=== PATIENT | male | born 1950 | race Caucasian/White ===

== ENCOUNTER → 2018-12-12 11:55 | Outpatient (CLI) | payer OTHER, SELFPAY ==
--- NOTE | 2018-12-12 11:57 | DI.RAD.S_ITS ---
PROCEDURE: FL BARIUM SWALLOW INDICATIONS: dysphagia COMPARISON: [facility] , BARIUM SWALLOW, 05/11/2016, 10:52. FINDINGS: Function: There is normal esophageal peristalsis. No elicited gastroesophageal reflux. Morphology: Air-contrast images demonstrate normal mucosal morphology. Single contrast views show no significant or new esophageal strictures, extrinsic mass effects, or diverticula. Small proximal esophageal ring seen previously is less prominent the current study. Limited images of the stomach demonstrate normal appearance. IMPRESSION: 1. No elicited gastroesophageal reflux or significant hiatal hernia. 2. Small proximal esophageal ring is less prominent on the current study. Dictated by: Sarah Don M.D. on 12/12/2018 at 14:33 Approved by: Sarah Don M.D. on 12/12/2018 at 14:41
== END ==
PROVIDERS: PCP Internal Medicine; Visit Provider Internal Medicine
DX: R13.10 Dysphagia, unspecified (principal); K22.2 Esophageal obstruction
CPT/HCPCS: 74220

== ENCOUNTER → 2020-06-20 11:45 | Outpatient (CLI) | payer OTHER, SELFPAY ==
--- NOTE | 2020-06-20 11:48 | DI.RAD.S_ITS ---
PROCEDURE: XR LUMBAR SPINE 2-3V INDICATIONS: right flank pain TECHNIQUE: 3 the views of the lumbar spine were acquired. COMPARISON: None. FINDINGS: Bones: No fracture. Multilevel degenerative endplate sclerosis and spurring. Diffuse facet arthropathy. Mild narrowing of the L1-L2 and L2-L3 disc spaces. Soft tissues: Scattered vascular calcifications seen in the aorta. IMPRESSION: Mild upper lumbar spondylosis and diffuse facet arthropathy Dictated by: Tico Gray M.D. on 06/20/2020 at 13:38 Approved by: Tico Gray M.D. on 06/20/2020 at 13:40
--- NOTE | 2020-06-20 11:48 | DI.RAD.S_ITS ---
PROCEDURE: XR KNEE RT 3V INDICATIONS: right knee pain TECHNIQUE: 3 views of the knee were acquired. COMPARISON: None. FINDINGS: Bones: No fractures or dislocations. No suspicious bony lesions. Scattered degenerative subchondral sclerosis and spurring. Joint spaces appear grossly preserved. Hypertrophic osseous appearance of the inferior pole of the patella Soft tissues: Trace joint effusion. No suspicious soft tissue calcifications. 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 Mild degenerative changes. If the patient's pain or other symptoms persist, consider further evaluation with MRI Dictated by: Tico Gray M.D. on 06/20/2020 at 14:58 Approved by: Tico Gray M.D. on 06/20/2020 at 15:02
== END ==
PROVIDERS: PCP Internal Medicine; Referring Provider Internal Medicine; Visit Provider Internal Medicine
DX: M25.561 Pain in right knee (principal); M47.816 Spondylosis without myelopathy or radiculopathy, lumbar region; I10 Essential (primary) hypertension; R10.9 Unspecified abdominal pain
CPT/HCPCS: 72100; 73562

== ENCOUNTER → 2022-01-27 16:35 | Outpatient (CLI) | payer OTHER, SELFPAY ==
--- NOTE | 2022-01-27 16:43 | DI.RAD.S_ITS ---
PROCEDURE: XR SHOULDER LT MIN 2V INDICATIONS: PAIN TECHNIQUE: 3 views of the shoulder were acquired. COMPARISON: None. FINDINGS: Bones: No fractures or dislocations. No suspicious bony lesions. Visualized ribs appear intact. The left acromioclavicular joint has mild degenerative changes. Soft tissues: No suspicious soft tissue calcifications. IMPRESSION: Mild degenerative changes of the left acromioclavicular joint. Otherwise no significant abnormality. No definite radiographic abnormality. If pain persists with conservative management consider cross-sectional imaging with MRI or CT. Dictated by: Myles Lopez M.D. on 01/28/2022 at 6:29 Approved by: Myles Lopez M.D. on 01/28/2022 at 6:30
[2022-01-27 17:38] LABS: Add Manual Diff / Slide Review NO; Basophils Absolute Auto 0 /uL (0-100); Basophils Percent Auto 0.5 % (0-2); Eosinophils Absolute Auto 100 /uL (0-450); Eosinophils Percent Auto 1.7 % (2-4); Hematocrit 43.4 % (41-53); Hemoglobin 15.3 g/dL (13.5-17.5); Lymphocytes Absolute Auto 1500 /uL (1100-4500); Mean Corpuscular HGB Conc 35.2 % (30-36); Mean Corpuscular Hemoglobin 30.5 PG (26-34); Mean Corpuscular Volume 86.6 fL (80-100); Monocytes Absolute Auto 500 /uL (0-900); Monocytes Percent Auto 8.1 % (3-14); Neutrophils Absolute Auto 4400 /uL (1500-7000); Neutrophils Percent Auto 66.7 % (50-75); Platelet Count 229 X10^3/uL (150-400); Red Blood Cell Count 5.01 X10^6/uL (4.5-5.9); Red Cell Distribution Width 13.9 % (11.6-14.8); White Blood Cell Count 6.6 X10^3/uL (4.5-11.0)
[2022-01-27 17:46] LABS: Alanine Aminotransferase 44 IU/L (<50); Albumin 4.6 g/dL (3.5-5.0); Albumin Globulin Ratio 1.2 (1.0-2.8); Alkaline Phosphatase 98 U/L (38-126); Aspartate Aminotransferase 33 IU/L (17-59); BUN Creatinine Ratio 15.3 (6-22); Bilirubin Total 1.1 mg/dL (0.2-1.3); Blood Urea Nitrogen 18 mg/dL (9-20); Calcium 9.1 mg/dL (8.4-10.2); Carbon Dioxide 23 mmol/L (22-32); Chloride 108 mmol/L (98-107); Cholesterol 195 mg/dL (140-199); Estimated Glomerular Filt Rate > 60 mL/min (>60); Glucose 102 mg/dL (80-110); HDL Cholesterol 29 mg/dL (40-60); HEMOLYSIS < 15 (0-50); LDL Cholesterol Calculated 127 mg/dL (<100); Potassium 3.4 mmol/L (3.4-5.1); Sodium 140 mmol/L (137-145); Total Protein 8.6 g/dL (6.3-8.2); Triglycerides 194 mg/dL (35-150)
[2022-01-27 17:51] LABS: Hemoglobin A1C% w Est Avg Glu 6.9 % (4.0-6.0)
[2022-01-27 18:24] LABS: TSH w/ Reflex to FT4 0.85 uIU/mL (0.47-4.68)
[2022-02-05 18:32] LABS: Percent Free Testosterone 1.46 % (1.50-4.20); Testosterone Free 0.59 ng/dL (5.00-21.00); Testosterone Total 40.4 ng/dL (264.0-916.0)
== END ==
PROVIDERS: PCP Family Medicine; Referring Provider Family Medicine; Visit Provider Family Medicine
DX: M25.512 Pain in left shoulder (principal); E29.1 Testicular hypofunction; E11.9 Type 2 diabetes mellitus without complications; I10 Essential (primary) hypertension; Z79.899 Other long term (current) drug therapy
CPT/HCPCS: 36415; 73030; 80053; 80061; 83036; 84402; 84403; 84443; 85025

== ENCOUNTER 2022-03-05 10:22 | Emergency (ER) | payer OTHER, SELFPAY ==
[2022-03-05] VITALS (9 sets, daily range): BP systolic 182–189; BP diastolic 93–97; PULSE 64–76; RESP 18–22; TEMP 36.6; O2SAT 95–99; BMI 31.0
--- NOTE | 2022-03-05 12:58 | ED.DENTAL ---
HPI - Dental/Oral <Cathy Love ACUTE CARE NURSE PRACTITIONER - Last Filed: 03/05/22 13:08> General Chief complaint: Dental/Oral Stated complaint: major tooth infection Time Seen by Provider: 03/05/22 11:57 Source: patient Mode of arrival: Ambulatory History of Present Illness HPI Narrative: This is a 71-year-old male with history of schizophrenia, GERD, hypertension, and Gonzales's esophagus who presents to the emergency department complaining of two weeks of left lower dental pain related to associated DKA with concern for infection. Patient endorses that was left at the tooth is loose and can wiggle but he has not been able to pull it out. Patient states that he did not sleep well last night due to the pain, states that he took Tylenol this morning and he is still having pain beyond the coverage of his Tylenol. He endorses a history of dental decay with most of his teeth missing and significant erosion. He denies any recent fever, swelling, lump in his mouth, facial pain throat or neck pain, chills, difficulty swallowing, or other or concerns. He states that it is sensitive to touch, denies any drainage, has history of multiple antibiotic allergies. Patient's primary care provider is Dr. Sims, and patient states that he does not have a dentist and cannot afford regular dental care. Related Data Home Medications Medication Instructions Recorded Confirmed aspirin 325 mg tablet,delayed 325 mg PO QDAY ##0 08/03/16 06/20/20 release Previous Rx's Medication Instructions Recorded meloxicam 15 mg tablet 15 mg PO DAILY #30 tabs 06/08/18 Sheldon #14 ea 10/01/19 Syringes #14 ea 10/01/19 benztropine 2 mg tablet 2 mg PO TID #270 tabs 11/20/19 triamterene 37.5 1 tab PO QDAY #90 tabs 12/27/19 mg-hydrochlorothiazide 25 mg tablet fluticasone propionate 50 2 spray intranasal BEDTIME #16 06/20/20 mcg/actuation nasal grams spray,suspension testosterone cypionate 100 mg/mL 100 mg IM Q2W #10 mL 06/20/20 intramuscular oil (Depo-Testosterone) trifluoperazine 10 mg tablet 10 mg PO HS #30 tabs 11/28/20 omeprazole 20 mg capsule,delayed 20 mg PO BID #60 caps 12/01/20 release chlorhexidine gluconate 0.12 % 15 ml buccal BID 1 week #118 mL 03/05/22 mouthwash clindamycin HCl 150 mg capsule 150 mg PO TID dental infection 7 03/05/22 days #21 caps clindamycin HCl 300 mg capsule 300 mg PO TID 7 days #21 caps 03/05/22 meloxicam 15 mg tablet 15 mg PO DAILY PRN pain #14 tabs 03/05/22 Allergies Allergy/AdvReac Type Severity Reaction Status Date / Time codeine [CODEINE] Allergy Unknown Verified 06/20/20 10:47 meperidine [MEPERIDINE] Allergy Unknown Verified 06/20/20 10:47 Penicillins [PENICILLINS] Allergy Unknown Verified 06/20/20 10:47 prochlorperazine Allergy Unknown Verified 06/20/20 10:47 [PROCHLORPERAZINE] Review of Systems <RICKY John - Last Filed: 03/05/22 13:08> Review of Systems Narrative: General: denies fever, chills Head/Neck: denies headache, neck pain Eyes: denies visual changes, eye pain Mouth: History of dental decay Cardio: denies chest pain, palpitations Respiratory: denies shortness of breath, cough GI: denies abdominal pain, nausea, vomiting, or diarrhea : denies dysuria, hematuria or flank pain MSK: denies new joint pain, muscle weakness or swelling Skin: denies rash, itching or wound Neuro: denies numbness, tingling, dizziness Patient History <RICKY John - Last Filed: 03/05/22 13:08> Medical History 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 dante/hinduism: Bahai leisure activities: art (Pictures.) and other (TV, Yardwork.) Smoking Status: Never smoker Tobacco: How many years used: 0 quit status: quit date established (Never Started) second hand exposure: No alcohol intake: current (Occasionally Saki.) substance use type: does not use Smoking Status: Never smoker Substance Use Type: does not use Exam <RICKY John - Last Filed: 03/05/22 13:08> Narrative Exam Narrative: Independently reviewed vitals signs and nursing notes. General: Awake, alert, nontoxic, no cardiorespiratory distress Head/Neck: Atraumatic, neck supple, no anterior cervical lymphadenopathy, no tenderness over mastoids bilaterally Eyes: EOMI, conjunctiva normal Nose: nares patent, no rhinorrhea Mouth/Throat: moist mucus membranes, posterior pharynx without erythema or lesion, poor dental hygiene with multiple missing teeth, small lumps of tooth left in a few spots with significant decay and erosion creating a bowl appearance to most teeth, no drainage, no surrounding erythema, edema, fluctuance, or palpable abscess, no submental fluctuance or tenderness Cardio: Regular rate and rhythm, no peripheral edema, hypertensive when in triage, blood pressure 150s to 160s systolic while in the room Respiratory: respirations unlabored without wheezing, stridor, or rales. No retractions, hypoxia or tachypnea GI: Abdomen soft, nontender to palpation x4 quadrants, no guarding or rebound tenderness MSK: Moves all extremities, neurovascularly intact, range of motion without deficit Skin: Normal capillary refill, no rash Neuro: Normal speech and cognition, normal gait Initial Vital Signs Initial Vital Signs: Vital Signs Pulse Rate 76 03/05/22 10:30 Pulse Oximetry 99 03/05/22 10:30 <Olive Wilde DO - Last Filed: 03/07/22 12:34> Initial Vital Signs Initial Vital Signs: Vital Signs Pulse Rate 76 03/05/22 10:30 Pulse Oximetry 99 03/05/22 10:30 Course <RICKY John - Last Filed: 03/05/22 13:08> Orders Ordered: Discontinued Medications Clindamycin HCl (Clindamycin 150 Mg Capsule) 150 mg PO NOW ONE Stop: 03/05/22 12:30 Last Admin: 03/05/22 13:11 Dose: 150 mg Documented By: RL Clindamycin HCl (Clindamycin 150 Mg Capsule) 300 mg PO NOW ONE Stop: 03/05/22 12:30 Last Admin: 03/05/22 13:11 Dose: 300 mg Documented By: RL Ketorolac Tromethamine (Ketorolac 10 Mg Tablet) 10 mg PO NOW ONE Stop: 03/05/22 12:30 Last Admin: 03/05/22 13:11 Dose: 10 mg Documented By: RL Vital Signs Vital signs: Vital Signs - 8 hr 03/05/22 10:32 Temperature 97.8 F Pulse Rate 75 Respiratory Rate 18 Blood Pressure 189/93 H Pulse Oximetry 99 Oxygen Delivery Method Room Air <Olive Wilde DO - Last Filed: 03/07/22 12:34> Orders Ordered: Discontinued Medications Clindamycin HCl (Clindamycin 150 Mg Capsule) 150 mg PO NOW ONE Stop: 03/05/22 12:30 Last Admin: 03/05/22 13:11 Dose: 150 mg Documented By: RL Clindamycin HCl (Clindamycin 150 Mg Capsule) 300 mg PO NOW ONE Stop: 03/05/22 12:30 Last Admin: 03/05/22 13:11 Dose: 300 mg Documented By: RL Ketorolac Tromethamine (Ketorolac 10 Mg Tablet) 10 mg PO NOW ONE Stop: 03/05/22 12:30 Last Admin: 03/05/22 13:11 Dose: 10 mg Documented By: RL Vital Signs Vital signs: Vital Signs - 8 hr 03/05/22 10:32 Temperature 97.8 F Pulse Rate 75 Respiratory Rate 18 Blood Pressure 189/93 H Pulse Oximetry 99 Oxygen Delivery Method Room Air MDM - Dental/Oral <RICKY John - Last Filed: 03/05/22 13:08> MDM Narrative Medical decision making narrative: This is a 71-year-old male with history of schizophrenia, developmental delay, Gonzales's esophagus who presents to the emergency department complaining of left lower mandible dental pain for the last two weeks which has been progressive and causing him poor sleep last night, and his pain is beyond what Tylenol have covered. Patient states that he thinks this is infected because it is so eroded and slightly loose. On my exam, patient has significant dental decay and all of his teeth are eroded and multiple are missing. On the lower left jaw, he has a bowl appearance to his tooth, no fluctuance, abscess, significant erythema or edema surrounding this area, no drainage. This is most likely infected either due to chronic gingivitis or DKA. He was given contact information to the [facility] dental clinics in [place] and [facility]. He was prescribed clindamycin 450 mg t.i.d. for seven days, chlorhexidine mouthwash, he was given meloxicam for pain to add to his Tylenol. In the emergency department he was given Toradol p.o. x1. Patient tolerating p.o., is nontoxic appearing, afebrile, without any systemic signs of infection. He understands to call make an appointment with the dental clinic and follow-up within a week, and to return to the emergency department for any new or worsening symptoms including fever, swelling in his mouth or throat, feeling poorly, or other concerns. Differential considerations include Pj's angina, peritonsillar abscess, dental abscess. Patient is appropriate and amenable to discharge home. Vital signs are stable on repeat examination is unremarkable. Patient has been informed of results. Patient has been given strict return to ER precautions for any new or worsening symptoms. Patient understands to follow up closely with outpatient providers as instructed. Patient understands plan and agrees to discharge home. All questions and concerns answered at this time. Discharge Plan Departure Patient Disposition: Home Clinical Impression: Dental infection, Toothache Instructions: Tooth Decay, DI for Dental Pain Activity Restrictions/Additional Instructions: *You have been diagnosed with a dental infection with decay. Please follow-up at one of the [facility] Dental Clinics. There is one in [place] and [facility] below. Please take clindamycin 450 mg (one 300mg and one 150 capsule) 3 times daily for the next seven days. If you develop a fever, have any worsening swelling, pain, or if you think this is getting worse, you may come back to the emergency department for evaluation again. Please use chlorhexidine oral rinse twice a day for one week to help reduce bacteria. Please eat food and drink some fluid each time the you take medication. You may take Tylenol 650 mg every 6 hours as needed for pain, you may take one ketorolac 10 mg every 6 hours as needed for more pain control. Thank you for trusting us with your care, please call and make an appointment at the clinics below. [facility] [address], [address] [place] [address] P: [phone] [facility] [address] [place] [address] P: [phone] *What to do: *Please continue to take your regular medications as directed. [x ] New medication prescriptions sent to your pharmacy: [ [facility]] [ ] New medication written as a paper prescription [ ] No new medications given *Please follow up with your primary care provider in 2-3 days, call for an appointment. Let them know you were seen in the Emergency Department and that we asked that you be seen for follow-up. We will electronically transmit a record of today's note if your PCP is in our system *If you do not have a primary care provider please contact [phone] to establish care with one of the [facility] primary care providers. *Return to Emergency Department if you should have any new, worsening or concerning symptoms, such as [fever greater than 101F, chills, worsening pain, persistent vomiting or other bothersome symptoms] Prescriptions: New clindamycin HCl 300 mg capsule 300 mg PO TID 7 Days Qty: 21 0RF clindamycin HCl 150 mg capsule 150 mg PO TID 7 Days Qty: 21 0RF Rx Instructions: take with 300mg capsule for a total of 450mg each dose, three times daily meloxicam 15 mg tablet 15 mg PO DAILY PRN (Reason: pain) Qty: 14 0RF chlorhexidine gluconate 0.12 % mouthwash 15 ml buccal BID 7 Days Qty: 118 0RF No Action aspirin 325 MG tablet,delayed release (DR/EC) 325 mg PO QDAY Qty: 0 (DME) Sheldon 18g See Rx Instructions .Route .MEDSUPPLY Qty: 14 3RF Dose Instruction: IM TWICE MONTHLY; Rx Instructions: IM TWICE MONTHLY; Draw up medication with 18g needle. Remove this needle and attach 21g for injection. (DME) Syringes See Rx Instructions .Route .MEDSUPPLY Qty: 14 3RF Dose Instruction: IM SEE INSTRUCTIONS; Rx Instructions: Use only 3ml syringe and 21g, 1 1/2 inch needle every 2 weeks for testosterone injections benztropine 2 mg tablet 2 mg PO TID Qty: 270 3RF triamterene-hydrochlorothiazid 37.5-25 mg tablet 1 tab PO QDAY Qty: 90 3RF trifluoperazine 10 mg tablet 10 mg PO HS Qty: 30 0RF Rx Instructions: REFILLS NEED TO COME FROM NEW PRIMARY DOC. THANK YOU 11/28/20 omeprazole 20 mg capsule,delayed release(DR/EC) 20 mg PO BID Qty: 60 1RF meloxicam 15 mg tablet 15 mg PO DAILY Qty: 30 0RF testosterone cypionate [Depo-Testosterone] 100 mg/mL oil 100 mg IM Q2W Qty: 10 0RF fluticasone propionate 50 mcg/actuation spray,suspension 2 spray intranasal BEDTIME Qty: 16 2RF Referrals: Niall Sims MD [Primary Care Provider] - Visit Report Forms: Patient Portal/API <Olive Wilde DO - Last Filed: 03/07/22 12:34> Cosign ED Attending Rafaelaature Attestation: I was immediately available in the department for consultation. Documentation has been reviewed.
[2022-03-05] MEDS: CLINDAMYCIN 150 MG CAPSULE PO (13:11)
[2022-03-05] MEDS: CLINDAMYCIN 150 MG CAPSULE 300 MG PO (13:11)
[2022-03-05] MEDS: KETOROLAC 10 MG TABLET PO (13:11)
== END 2022-03-05 13:15 | disposition home or self-care (01) ==
PROVIDERS: Emergency Provider Nurse Practitioner Critical Care Medicine; PCP Family Medicine
DX: K04.7 Periapical abscess without sinus (principal); K08.89 Other specified disorders of teeth and supporting structures
CPT/HCPCS: 99283

== ENCOUNTER → 2022-08-30 15:25 | Outpatient (CLI) | payer OTHER, SELFPAY ==
[2022-08-30 17:08] LABS: Influenza A - CEPHEID Flu A NEGATIVE (NEGATIVE); Influenza B - CEPHEID Flu B NEGATIVE (NEGATIVE); Respiratory Syncytial Virus Negative (Negative)
[2022-08-30 17:10] LABS: COVID-19 CEPHEID 4-PLEX PCR Negative (Negative)
== END ==
PROVIDERS: PCP Family Medicine; Visit Provider Nurse Practitioner Family
DX: R05.9 Cough, unspecified (principal); R09.81 Nasal congestion; Z20.822 Contact with and (suspected) exposure to COVID-19
CPT/HCPCS: 0241U

== ENCOUNTER 2023-06-26 19:16 | Observation (INO) | payer OTHER, SELFPAY ==
[2023-06-26] VITALS (11 sets, daily range): BP systolic 130–197; BP diastolic 61–143; PULSE 53–72; RESP 16–28; TEMP 36.4; O2SAT 98; BMI 32.2
--- NOTE | 2023-06-26 19:26 | DI.RAD.S_ITS ---
PROCEDURE: XR CHEST 1V INDICATIONS: Chest pain. TECHNIQUE: One view of the chest was acquired. COMPARISON: None. FINDINGS: Surgical changes and devices: None. Lungs and pleura: Lungs are clear. No pleural effusions or pneumothorax. Mediastinum: Mediastinal contours appear normal. Heart size is normal. Bones and chest wall: No suspicious bony lesions. Overlying soft tissues appear unremarkable. IMPRESSION: No acute cardiopulmonary pathology. Dictated by: Taj Dominguez M.D. on 06/26/2023 at 20:30 Approved by: Taj Dominguez M.D. on 06/26/2023 at 20:31
--- NOTE | 2023-06-26 19:38 | ED_ITS ---
HPI - Chest Pain General Chief Complaint: Chest Pain Stated Complaint: states BP 170/90 Chest Pain Time Seen by Provider: 06/26/23 19:38 Source: patient Mode of arrival: Ambulatory History of Present Illness HPI narrative: Patient is a 72-year-old insulin dependent diabetes hypertension to solve his schizophrenia presenting today with sudden onset of left chest pain. He describes it as an achiness and pressure. It has been pretty constant for a couple of hours he was nauseous but no vomiting. No significant shortness of breath. It started while he was walking his CT. Nonradiating no jaw pain or arm pain. Initially reports still having chest pain took aspirin prior to arrival. History of coronary artery disease. Related Data Home Medications Medication Instructions Recorded Confirmed aspirin 325 mg tablet,delayed 325 mg PO QDAY ##0 08/03/16 08/30/22 release benztropine 2 mg tablet 2 mg PO BID 06/27/23 06/27/23 testosterone 1 pump topical DAILY 06/27/23 06/27/23 trifluoperazine 10 mg tablet 10 mg PO ONCE PM 06/27/23 06/27/23 Previous Rx's Medication Instructions Recorded triamterene 37.5 1 tab PO QDAY #90 tabs 12/27/19 mg-hydrochlorothiazide 25 mg tablet omeprazole 20 mg capsule,delayed 20 mg PO BID #60 caps 10/04/22 release Allergies Allergy/AdvReac Type Severity Reaction Status Date / Time codeine [CODEINE] Allergy Unknown Verified 08/30/22 15:14 meperidine [MEPERIDINE] Allergy Unknown Verified 08/30/22 15:14 Penicillins [PENICILLINS] Allergy Unknown Verified 08/30/22 15:14 prochlorperazine Allergy Unknown Verified 08/30/22 15:14 [PROCHLORPERAZINE] Review of Systems Review of Systems ROS Unobtainable: All systems reviewed & are unremarkable except as noted in HPI and below Patient History Medical History 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 dante/shinto: Adventism leisure activities: art (Pictures.) and other (TV, Yardwork.) Smoking Status: Never smoker Tobacco: How many years used: 0 quit status: quit date established (Never Started) second hand exposure: No alcohol intake: current (Occasionally Saki.) substance use type: does not use Smoking Status: Never smoker Substance Use Type: does not use Exam Initial Vital Signs Initial Vital Signs: Vital Signs Temperature 97.5 F L 06/26/23 19:21 Pulse Rate 72 06/26/23 19:21 Respiratory Rate 16 06/26/23 19:21 Blood Pressure 197/143 H 06/26/23 19:21 Pulse Oximetry 98 06/26/23 19:21 Oxygen Delivery Method Room Air 06/26/23 19:21 GENERAL: Alert pleasant 73-year-old male and in no acute distress. HEENT: Head atraumatic,EOMI, pupils reactive, face symmetric, moist mucous membranes CARDIOVASCULAR: Regular rate and rhythm without murmurs, rubs or gallops. RESPIRATORY: Breath sounds equal bilaterally, no wheezes rales or rhonchi. ABDOMEN: Soft, nontender. Normoactive bowel sounds all 4 quadrants. No guarding or rebound. EXTREMITIES: Normal range of motion, no clubbing or edema. Neurovascularly intact NEUROLOGICAL: Alert and oriented x4 SKIN: Warm, dry, no laceration, no petechiae, no rashes or lesions. Course Orders Ordered: ED Orders 06/26/23 19:26 XR chest 1V Stat EKG-12 Lead Stat 06/26/23 19:33 Complete Blood Count AUTO DIFF Stat Comprehensive Metabolic Panel Stat D Dimer Stat Lipase Stat Magnesium Stat PTT Partial Thromboplastin Cole Stat Prothrombin Time INR Stat Troponin & CK Cardiac Panel Stat 06/26/23 19:53 EKG-12 Lead Stat 06/26/23 21:20 Trop I [Troponin I] Stat 06/27/23 04:15 PTT Partial Thromboplastin Cole Q6H 06/27/23 05:00 Hemoglobin and Hematocrit DAILY Platelet Count DAILY 06/27/23 10:15 PTT Partial Thromboplastin Cole Q6H 06/27/23 16:15 PTT Partial Thromboplastin Cole Q6H 06/28/23 05:00 Hemoglobin and Hematocrit DAILY Platelet Count DAILY Nitroglycerin (Nitroglycerin 0.4 Mg Sl Tab) 0.4 mg SL [id number] PRN PRN Reason: Chest Pain Last Admin: 06/26/23 19:58 Dose: 0.4 mg Documented By: MIGUEL Discontinued Medications Aspirin (Aspirin 81 Mg Chew Tab) 324 mg PO NOW ONE Stop: 06/26/23 19:27 Last Admin: 06/26/23 19:54 Dose: 324 mg Documented By: MIGUEL Heparin Sodium (Porcine) (Heparin 5,000 Unit/Ml Vial) 5,000 unit IV NOW ONE Stop: 06/26/23 22:15 Last Admin: 06/26/23 22:31 Dose: 5,000 unit Documented By: MIGUEL Heparin Sodium/Dextrose (Heparin Drip) 25,000 unit in 500 mls @ 20 mls/hr IV CONT MARTINE; Protocol Last Admin: 06/26/23 22:32 Dose: 1,000 units/hr, 20 mls/hr Documented By: MIGUEL Co-signed By: RUSTAM Vital Signs Vital signs: Vital Signs - 8 hr 06/26/23 19:21 06/26/23 19:45 06/26/23 19:58 Temperature 97.5 F L Pulse Rate 72 71 68 Respiratory Rate 16 27 H Blood Pressure 197/143 H 169/82 H Pulse Oximetry 98 Oxygen Delivery Method Room Air 06/26/23 20:00 06/26/23 20:00 06/26/23 20:30 Temperature Pulse Rate 70 Respiratory Rate 28 H Blood Pressure 172/80 H 147/75 H Pulse Oximetry Oxygen Delivery Method 06/26/23 20:30 06/26/23 21:00 06/26/23 21:00 Temperature Pulse Rate 67 62 Respiratory Rate 28 H 20 Blood Pressure 155/72 H Pulse Oximetry Oxygen Delivery Method 06/26/23 21:30 06/26/23 21:30 06/26/23 22:00 Temperature Pulse Rate 61 Respiratory Rate 22 Blood Pressure 141/67 H 132/68 Pulse Oximetry Oxygen Delivery Method 06/26/23 22:00 06/26/23 22:30 06/26/23 22:30 Temperature Pulse Rate 60 58 L Respiratory Rate 26 H 24 Blood Pressure 142/69 H Pulse Oximetry Oxygen Delivery Method 06/26/23 23:00 06/26/23 23:00 06/26/23 23:30 Temperature Pulse Rate 53 L Respiratory Rate 26 H Blood Pressure 130/63 144/61 H Pulse Oximetry Oxygen Delivery Method 06/26/23 23:30 06/27/23 00:00 06/27/23 00:00 Temperature Pulse Rate 55 L 54 L Respiratory Rate 28 H 18 Blood Pressure 122/56 L Pulse Oximetry Oxygen Delivery Method 06/27/23 00:30 06/27/23 00:31 06/27/23 00:31 Temperature Pulse Rate 54 L 54 L Respiratory Rate 22 22 Blood Pressure 122/56 L Pulse Oximetry Oxygen Delivery Method 06/27/23 01:00 06/27/23 01:01 06/27/23 01:01 Temperature Pulse Rate 52 L 53 L Respiratory Rate 15 20 Blood Pressure 171/72 H Pulse Oximetry Oxygen Delivery Method 06/27/23 01:30 06/27/23 01:31 06/27/23 01:31 Temperature Pulse Rate 52 L 56 L Respiratory Rate 19 24 Blood Pressure 124/59 L Pulse Oximetry Oxygen Delivery Method 06/27/23 02:00 06/27/23 02:01 06/27/23 02:01 Temperature Pulse Rate 53 L 53 L Respiratory Rate 26 H 33 H Blood Pressure 127/59 L Pulse Oximetry Oxygen Delivery Method MDM - Chest Pain Lab Data 06/26/23 19:33 06/26/23 19:33 Labs: Lab Results 06/26/23 06/26/23 Range/Units 19:33 21:20 WBC 10.2 (4.5-11.0) X10^3/uL RBC 4.74 (4.5-5.9) X10^6/uL Hgb 15.0 (13.5-17.5) g/dL Hct 42.0 (41-53) % MCV 88.7 (80-100) fL MCH 31.7 (26-34) PG MCHC 35.8 (30-36) % RDW 13.9 (11.6-14.8) % Plt Count 208 (150-400) X10^3/uL Neut % (Auto) 72.4 (50-75) % Lymph % (Auto) 17.9 L (25-40) % [place] % (Auto) 8.0 (3-14) % Eos % (Auto) 1.3 L (2-4) % Baso % (Auto) 0.4 (0-2) % Neut # (Auto) 7400 H (3377-3181) /uL Lymph # (Auto) 1800 (4678-3784) /uL [place] # (Auto) 800 (0-900) /uL Eos # (Auto) 100 (0-450) /uL Baso # (Auto) 0 (0-100) /uL PT 12.7 (10.1-12.7) SECONDS INR 1.1 (0.9-1.3) APTT 32 (26-36) SECONDS D-Dimer 306 (<500) ng/ml Sodium 141 (137-145) mmol/L Potassium 3.1 L (3.4-5.1) mmol/L Chloride 106 (98-107) mmol/L Carbon Dioxide 27 (22-32) mmol/L BUN 21 H (9-20) mg/dL Creatinine 1.36 H (0.66-1.25) mg/dL Estimated GFR 56 L (>60) mL/min BUN/Creatinine Ratio 15.4 (6-22) Glucose 110 (80-110) mg/dL Calcium 9.8 (8.4-10.2) mg/dL Magnesium 2.0 (1.6-2.3) mg/dL Total Bilirubin 1.1 (0.2-1.3) mg/dL AST 25 (17-59) IU/L ALT 25 (<50) IU/L Alkaline Phosphatase 74 (38-126) U/L Total Creatine Kinase 100 (55-170) U/L Troponin I < 0.012 < 0.012 (0.01-0.034) ng/mL Total Protein 8.2 (6.3-8.2) g/dL Albumin 4.3 (3.5-5.0) g/dL Globulin 3.9 (1.7-4.1) g/dL Albumin/Globulin Ratio 1.1 (1.0-2.8) Lipase 207 (23-300) U/L Imaging Data Chest x-ray: Radiologist's Impression: PROCEDURE: XR CHEST 1V INDICATIONS: Chest pain. TECHNIQUE: One view of the chest was acquired. COMPARISON: None. FINDINGS: Surgical changes and devices: None. Lungs and pleura: Lungs are clear. No pleural effusions or pneumothorax. Mediastinum: Mediastinal contours appear normal. Heart size is normal. Bones and chest wall: No suspicious bony lesions. Overlying soft tissues appear unremarkable. IMPRESSION: No acute cardiopulmonary pathology. Dictated by: Taj Dominguez M.D. on 06/26/2023 at 20:30 ECG Data Interpretation: EKG 1. Sinus rhythm rate 72 IA interval 174 QRS [address] depression lead 1 aVL V5 V6 lead do AVF no ST elevations, previous EKG from [address] depression EKG 2. Sinus rhythm persistent ST depressions without ST elevation MDM Narrative Medical decision making narrative: Patient is 73-year-old male multiple risk factors with new EKG changes presenting today with chest pain. He is 2- troponins he is almost chest pain- free in the ED given a nitroglycerin and remains stable uncomfortable. D-dimer is negative not having any sort of ripping chest pain unlikely to be dissection. Dr. Orr on-call cardiology updated on patient's symptoms test results recommends heparin drip and transfer to [facility] if possible. [facility] boarding minute unable to accept patient Dr. Dominguez, cardiology [facility] updated, states patient can be transferred to [facility] admitted to hospitalist no heparin drip needed would not get a heart catheterization but does need a stress Hospitalist [facility] does not accept patient cardiology would not be involved no need to transfer patient Dr. Busch, updated on patient's symptoms test results cardiology recommendations agrees to keep patient here no heparin drip and kindly accepts Discharge Plan Departure Patient Disposition: Admitted as Observation Clinical Impression: Chest pain Admit Date/Time: 06/27/23 02:06 Admit Provider: Rommel Busch
[2023-06-26 19:43] LABS: Add Manual Diff / Slide Review NO; Basophils Absolute Auto 0 /uL (0-100); Basophils Percent Auto 0.4 % (0-2); Eosinophils Absolute Auto 100 /uL (0-450); Eosinophils Percent Auto 1.3 % (2-4); Lymphocytes Absolute Auto 1800 /uL (1100-4500); Lymphocytes Percent Auto 17.9 % (25-40); Mean Corpuscular HGB Conc 35.8 % (30-36); Mean Corpuscular Hemoglobin 31.7 PG (26-34); Mean Corpuscular Volume 88.7 fL (80-100); Monocytes Absolute Auto 800 /uL (0-900); Neutrophils Absolute Auto 7400 /uL (1500-7000); Neutrophils Percent Auto 72.4 % (50-75); Platelet Count 208 X10^3/uL (150-400); Red Blood Cell Count 4.74 X10^6/uL (4.5-5.9); Red Cell Distribution Width 13.9 % (11.6-14.8); White Blood Cell Count 10.2 X10^3/uL (4.5-11.0)
[2023-06-26 19:51] LABS: INR 1.1 (0.9-1.3); Prothrombin Time 12.7 SECONDS (10.1-12.7)
[2023-06-26 19:53] LABS: PTT Partial Thromboplastin Tim 32 SECONDS (26-36)
[2023-06-26] MEDS: ASPIRIN 81 MG CHEW TAB 324 MG PO (19:54)
[2023-06-26 19:57] LABS: Alanine Aminotransferase 25 IU/L (<50); Albumin 4.3 g/dL (3.5-5.0); Albumin Globulin Ratio 1.1 (1.0-2.8); Alkaline Phosphatase 74 U/L (38-126); Aspartate Aminotransferase 25 IU/L (17-59); BUN Creatinine Ratio 15.4 (6-22); Bilirubin Total 1.1 mg/dL (0.2-1.3); Blood Urea Nitrogen 21 mg/dL (9-20); Calcium 9.8 mg/dL (8.4-10.2); Carbon Dioxide 27 mmol/L (22-32); Chloride 106 mmol/L (98-107); Creatine Kinase 100 U/L (55-170); Estimated Glomerular Filt Rate 56 mL/min (>60); Globulin 3.9 g/dL (1.7-4.1); Glucose 110 mg/dL (80-110); HEMOLYSIS 21 (0-50); Lipase 207 U/L (23-300); Potassium 3.1 mmol/L (3.4-5.1); Sodium 141 mmol/L (137-145); Total Protein 8.2 g/dL (6.3-8.2)
[2023-06-26] MEDS: NITROGLYCERIN 0.4 MG SL TAB SL (19:58)
[2023-06-26 20:07] LABS: D Dimer 306 ng/ml (<500)
[2023-06-26 20:08] LABS: Troponin I < 0.012 ng/mL (0.01-0.034)
[2023-06-26 21:52] LABS: Troponin I < 0.012 ng/mL (0.01-0.034)
[2023-06-26] MEDS: HEPARIN 5,000 UNIT/ML VIAL 5000 UNIT IV (22:31)
[2023-06-26] MEDS: HEPARIN DRIP 25,000 UNIT/500 ML IV.SOLN 20 UNIT IV (22:32)
[2023-06-27] VITALS (15 sets, daily range): BP systolic 122–171; BP diastolic 56–86; PULSE 52–72; RESP 15–33; TEMP 36.3–36.6; O2SAT 96–98; BMI 32.2
[2023-06-27 04:51] LABS: Hemoglobin 14.4 g/dL (13.5-17.5); Platelet Count 184 X10^3/uL (150-400)
[2023-06-27 05:00] LABS: PTT Partial Thromboplastin Tim 35 SECONDS (26-36)
--- NOTE | 2023-06-27 09:07 | DI.ECHO.S_ITS ---
[place] [facility]---------+ [facility] +---------+ : : [address] : : : : [id number] : : : : Phone: [phone]+ Echocardiogram Report + + :Name: CLARIBEL OLSON Study Date: 06/27/2023 Height: 68 in : :[facility] ReadingLocation: Weight: 194 lb : : Gender: Male BSA: 2.0 m2 : :: 1950 Age: 73 yrs BP: 132/84 mmHg: :Reason For Study: Chest Pain : :Ordering Physician: BOGDAN, : :LIZ Dempsey Performed By: Jennifer Cotton : :Referring: LIZ MCFADDEN : + + Interpretation Summary The ejection fraction is estimated to be 70-75%. There is mild-moderate concentric left ventricular hypertrophy. The right ventricle is normal size. There is mild mitral regurgitation. There is mild aortic regurgitation. The aortic valve is moderately calcified. There is moderate to severe aortic stenosis. Procedure: A two-dimensional transthoracic echocardiogram with color flow and Doppler was performed. The study quality was technically adequate. There is no prior echocardiogram noted for this patient. The patient was in normal sinus rhythm during the exam. Left Ventricle: The left ventricle is normal in size. There is mild-moderate concentric left ventricular hypertrophy. The ejection fraction is estimated to be 70-75%. Diastolic parameters suggest a relaxation abnormality of the left ventricle, consistent with probable normal filling pressures. Right Ventricle: The right ventricle is normal size. Right ventricular systolic function is borderline reduced. Atria: The left atrial size is normal. Right atrial size is normal. There is no Doppler evidence for an interatrial shunt. Mitral Valve: The mitral valve is normal. There is no mitral valve stenosis. There is mild mitral regurgitation. Aortic Valve: The aortic valve is trileaflet. The aortic valve is moderately calcified. There is moderate to severe aortic stenosis. The peak aortic velocity is 4.00 m/sec. The aortic valve mean gradient is 36 mmHg. There is mild aortic regurgitation. Tricuspid Valve: The tricuspid valve is normal. There is no tricuspid stenosis. There is trace tricuspid regurgitation. Pulmonic Valve: The pulmonic valve leaflets are thin and pliable; valve motion is normal. There is no pulmonic valvular stenosis. There is no pulmonic valvular regurgitation. Great Vessels: The aortic root is normal size. The ascending aorta is normal in size. The pulmonary artery is normal size. The inferior vena cava was not well visualized. Pericardium/ Pleura There is no pericardial effusion. There is no pleural effusion. MMode/2D Measurements & Calculations LVIDd: 4.2 cm LVOT diam: 2.0 cm LVIDs: 2.7 cm Ao root diam: 2.9 cm FS: 35.7 % asc Aorta Diam: 3.2 cm IVSd: 1.4 cm LVPWd: 1.6 cm LV lu. diameter/BSA (cm/m^2): 2.1 LV sys. diameter/BSA (cm/m^2): 1.3 LA A2 area: 17.4 cm2 RA long axis: 4.2 cm LA A4 area: 18.8 cm2 RA area: 9.0 cm2 LA length (vol): 5.4 cm RA vol: 16.3 ml LA vol: 51.5 ml RA : 8.1 ml/m2 LA vol index: 25.5 ml/m2 RVD1 (basal): 2.8 cm LVLs ap4: 6.1 cm LVLd ap2: 7.1 cm TAPSE_phl: 1.7 cm LVLs ap2: 5.7 cm Doppler Measurements & Calculations Ao V2 max: 368.8 cm/sec LVOT Max Og: 113.0 cm/sec Ao V2 mean: 258.4 cm/sec LV V1 max P.1 mmHg Ao max P.0 mmHg LV V1 VTI: 24.6 cm Ao mean P.8 mmHg JOANN(I,D): 1.0 cm2 Ao V2 VTI: 73.7 cm JOANN(V,D): 0.96 cm2 sev ratio: 0.33 JOANN indexed to BSA (cm^2/m^2): 0.52 MV E max og: 102.0 cm/sec PA V2 max: 132.0 cm/sec MV A max og: 115.0 cm/sec PA V2 mean: 89.2 cm/sec MV E/A: 0.89 PA mean P.0 mmHg Med Peak E' Og: 4.3 cm/sec PA pr(Accel): 30.4 mmHg E/E' med: 23.5 Lat Peak E' Og: 6.4 cm/sec E/E' lat: 15.9 E/e' average: 19.7 MV dec time: 0.23 sec SV(LVOT): 77.3 ml AV VR_phl: 0.31 JOANN(VTI)/BSA_phl: 0.52 Reading Physician:08:00 PM
[2023-06-27] MEDS: POTASSIUM CHLORIDE 20 MEQ TAB 40 MEQ PO (09:36)
[2023-06-27 11:03] LABS: PTT Partial Thromboplastin Tim 30 SECONDS (26-36)
--- NOTE | 2023-06-27 12:35 | PM.HP.1 ---
History of Present Illness History of Present Illness Date Patient Seen: 06/27/23 Time Patient Seen: 08:50 Chief complaint: states BP 170/90 Chest Pain Narrative: Patient presents via ED for complaint of sudden onset left-sided chest pain while walking he has history significant for schizophrenia and elevated blood pressure and hypogonadism he did have elevated blood pressure with reassuring EKG and negative troponins trended out cardiology recommended admission for cardiac eval this morning he reports chest pain feels resolved. He is feeling normal with good appetite slept well last night. 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 dante/confucianist: Sabianist leisure activities: art (Pictures.) and other (TV, Yardwork.) Smoking Status: Never smoker Tobacco: How many years used: 0 quit status: quit date established (Never Started) second hand exposure: No alcohol intake: current substance use type: does not use Meds Home Medications and Allergies Home Medications Medication Instructions Recorded Confirmed Type aspirin 325 mg tablet,delayed 325 mg PO QDAY ##0 08/03/16 06/27/23 History release triamterene 37.5 1 tab PO QDAY #90 tabs 12/27/19 06/27/23 Rx mg-hydrochlorothiazide 25 mg tablet omeprazole 20 mg capsule,delayed 20 mg PO BID #60 caps 10/04/22 06/27/23 Rx release benztropine 2 mg tablet 2 mg PO BID 06/27/23 06/27/23 History testosterone 1 pump topical DAILY 06/27/23 06/27/23 History trifluoperazine 10 mg tablet 10 mg PO ONCE PM 06/27/23 06/27/23 History Allergies Allergy/AdvReac Type Severity Reaction Status Date / Time codeine [CODEINE] Allergy Unknown Verified 08/30/22 15:14 meperidine [MEPERIDINE] Allergy Unknown Verified 08/30/22 15:14 Penicillins [PENICILLINS] Allergy Unknown Verified 08/30/22 15:14 prochlorperazine Allergy Unknown Verified 08/30/22 15:14 [PROCHLORPERAZINE] Review of Systems Review of Systems Narrative: All systems reviewed and negative except as otherwise described in HPI Exam Vital Signs (past 8 hours): - 06/27/23 08:00 Pulse Rate 62 Respiratory Rate 16 Blood Pressure 148/78 H Pulse Oximetry 97 Oxygen Delivery Method Room Air Oxygen Flow Rate 0 Narrative Exam Narrative: Cheerful alert older Const Other: Well-nourished well-developed Resp Auscultation: clear to auscultation bilaterally Cardio Rate: regular rate Rhythm: regular rhythm Heart Sounds: S1 normal and S2 normal GI Other: Soft nontender nondistended normal bowel sounds Extrem Other: Moves all extremities no peripheral edema Psych Appearance: grossly normal Speech and Movement: speech and movement normal Mood: congruent mood Affect: normal affect Attitude: cooperative Thought Process: tangential Objective Labs 06/27/23 04:15 06/26/23 19:33 Labs: Laboratory Results - last 24 hr 06/26/23 06/26/23 06/27/23 19:33 21:20 04:15 WBC 10.2 RBC 4.74 Hgb 15.0 14.4 Hct 42.0 41.0 MCV 88.7 MCH 31.7 MCHC 35.8 RDW 13.9 Plt Count 208 184 Neut % (Auto) 72.4 Lymph % (Auto) 17.9 L [place] % (Auto) 8.0 Eos % (Auto) 1.3 L Baso % (Auto) 0.4 Neut # (Auto) 7400 H Lymph # (Auto) 1800 [place] # (Auto) 800 Eos # (Auto) 100 Baso # (Auto) 0 PT 12.7 INR 1.1 APTT 32 35 D-Dimer 306 Sodium 141 Potassium 3.1 L Chloride 106 Carbon Dioxide 27 BUN 21 H Creatinine 1.36 H Estimated GFR 56 L BUN/Creatinine Ratio 15.4 Glucose 110 Calcium 9.8 Magnesium 2.0 Total Bilirubin 1.1 AST 25 ALT 25 Alkaline Phosphatase 74 Total Creatine Kinase 100 Troponin I < 0.012 < 0.012 Total Protein 8.2 Albumin 4.3 Globulin 3.9 Albumin/Globulin Ratio 1.1 Lipase 207 10/09/23 10:45 WBC RBC Hgb Hct MCV MCH MCHC RDW Plt Count Neut % (Auto) Lymph % (Auto) [place] % (Auto) Eos % (Auto) Baso % (Auto) Neut # (Auto) Lymph # (Auto) [place] # (Auto) Eos # (Auto) Baso # (Auto) PT INR APTT 30 D-Dimer Sodium Potassium Chloride Carbon Dioxide BUN Creatinine Estimated GFR BUN/Creatinine Ratio Glucose Calcium Magnesium Total Bilirubin AST ALT Alkaline Phosphatase Total Creatine Kinase Troponin I Total Protein Albumin Globulin Albumin/Globulin Ratio Lipase Assessment & Plan Assessment & Plan narrative: # chest pain rule out ACS Concerning history We will proceed to get stress test and echo today initial troponins trended negative # hypertension Continue home meds chest pain does seem to resolve with his blood pressure this morning # schizophrenia Stable continue home meds Dispo: admit obsv for cardiac workup MDM: Sister Millie PCP: Levi Code: full diet: heart healthy after study Quality VTE Deep Vein Thrombosis/Pulmonary Embolism Present on Admission: No
--- NOTE | 2023-06-27 14:19 | DI.NM.S_ITS ---
DATE OF SERVICE: 06/27/2023 PROCEDURE: Exercise treadmill stress and rest myocardial perfusion imaging with gating to assess ejection fraction and regional wall motion. ORDERING PROVIDER: Dr. Rommel Busch. INDICATIONS: The patient is a 73-year-old diabetic hypertensive male who presented with chest discomfort and significant hypertension. CARDIAC STRESS: The patient was able to exercise for a total of 5 minutes 41 seconds on a standard Frantz protocol suggesting moderately reduced exercise capacity with an ZACKERY of +24%. He had a normal heart rate response to exercise, achieving a maximum heart rate of 146 BPM (98% of his predicted maximum). He had a moderate hypertensive blood pressure response with a resting blood pressure of 168/80, increasing to a maximum of 220/100. He had no chest discomfort or other anginal symptoms. His resting ECG shows sinus rhythm with LVH with associated ST and T-wave abnormalities. With stress, there are no significant ST-segment shifts and there were no arrhythmias. At 4 minutes 40 seconds of exercise, at a heart rate of 130 bpm, 27.5 mCi of technetium-99m Myoview was injected and he was imaged 15 minutes later using a gated SPECT acquisition protocol. Earlier in the day while at rest he was injected with 10.9 mCi of technetium- 99m Myoview and was imaged 20 minutes later, again using a gated SPECT acquisition protocol. FINDINGS: Raw data: There is fair myocardial tracer uptake with only slight patient motion noted. Lung/heart ratio is normal at 0.35 with a normal TID ratio of 1.10. Quantitated gated SPECT: Post-stress ejection fraction is estimated at 74% without any focal wall motion abnormality. Resting ejection fraction is 67% with a normal resting end-diastolic volume of 106 mL. Myocardial perfusion imaging: Post-stress supine images shows a normal myocardial perfusion pattern without any perfusion defects, supported by normal perfusion imaging in the prone position. The resting images show an identical perfusion pattern without any areas of improvement. IMPRESSION: 1. Normal myocardial perfusion study. 2. No evidence of myocardial ischemia or previous myocardial infarction. 3. Normal left ventricular systolic function without any focal wall motion abnormality. 4. Moderately reduced exercise capacity without any angina or ECG evidence of ischemia, but with a moderate hypertensive blood pressure response to exercise and a resting ECG consistent with left ventricular hypertrophy with associated repolarization abnormalities. Hay Day - RS/fn/ doc#: [id number]/job#: [id number] dd: 06/27/2023 12:59:00 dt: 06/27/2023 13:09:00 DICTATING MD/COPIES TO: Raymond Norris MD; Rommel Busch MD; Niall Sims M.D. COPIES MNE: KRYSTAL; ;
--- NOTE | 2023-06-27 14:59 | CM.DANOTE ---
Initial DCP Assessment Note Pt is a 73 yo male, resident at [facility] in [place], arrives with increase BP and chest pain, admitted for CP r/o. PMH includes Gonzales's esophagus without dysplasia (08/09/16), HTN, Schizophrenia According to conversation w/Dr Sims this morning, patient will have echo and stress test and then will likely discharge home. PCP: Niall Sims Payer: Jaylon [facility] Reviewed chart, met w/patient to introduce self and role. Patient lives with his sister and brother in law at [facility], says he has been living there for quite awhile. Patient reports he is indp at baseline, JODI Edwards cooks and drives. Patient denies needs from this [facility] [employer] at this time, says JODI Edwards will drive him home upon discharge. No barriers identified at this time to patient's safe discharge home w/family to assist; close outpatient f/u recommended. CM team will plan to follow closely in case any DC needs or concerns arise. JUNIOR Valerio Discharge Planning/Care Management CM Discharge Assessment Start: 06/27/23 14:55 Freq: Status: Active Protocol: Document 06/27/23 14:55 CHARLIE (Rec: 06/27/23 14:58 CHARLIE [id number]) Discharge Planning Assessment Assigned Sheriff Deputy JUNIOR Segundo DPOA/Assigned Designee Name sister [place] Contact Information [phone] Advance Directives? No History Provided By Patient,Medical Record Prior Living Arrangements Other Comment [facility], lives with sister and [id number] Household Members family Type of transporation used prior to Relies on Others admit Independent with ADL's Yes: Patient does not cook or drive Is patient alert and oriented? Yes Needs Assistance With Meal Prep,Home Chores / Shopping Barriers to Discharge No Comment Home w/family. Family to transport Discharge Plan Home Transportation Arrangement Family Referrals Initiated None needed Additional Comment Following closely in case any DC needs or concerns arise
--- NOTE | 2023-06-27 15:15 | PC.NURSE ---
Patient has denied chest pain. He had his stress test this morning and has not gotten his echo yet. 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 He is alert and oriented x4 and denies pain. Patient has a bday today and he was served a piece of cake for his day. He is voiding per urinal and is comfortable.
--- NOTE | 2023-06-27 17:39 | P.DS_ITS ---
History of Present Illness History of Present Illness Date Patient Seen: 06/27/23 Time Patient Seen: 17:39 Chief complaint: states BP 170/90 Chest Pain Narrative: Doing well this afternoon was able to obtain cardiac stress test which per Dr. Norris appears to be low risk we were able to obtain echocardiogram as well read still pending at this time he patient reports chest pain has completely gone vitals are normal he feels ready to go home. Discharge Providers Provider Date of admission: 06/27/23 02:06 Discharge Date: 06/27/23 Primary care physician: Niall Sims MD Discharge provider: Niall Sims MD Summary Hospital Course Discharge Diagnosis: #chest pain rule out ACS #hypokalemia #Schizophrenic #hypertension Hospital Course: Mr. Day is a pleasant gentleman well known to our service who presented to our ED with acute onset of left-sided chest pain while walking yesterday. He did not have other significant symptoms at that time but his history was concerning for possible cardiac event and he was admitted for further workup. Throughout today he has done well with resolution of symptoms his stress test was considered low risk his troponins trended normal and he feels ready to go home. Exam Vital Signs (past 8 hours): - 06/27/23 12:00 06/27/23 16:00 Pulse Rate 72 72 Respiratory Rate 17 16 Blood Pressure 149/78 H 162/84 H Pulse Oximetry 97 96 Oxygen Delivery Method Room Air Oxygen Flow Rate 0 Narrative Exam Narrative: Cheerful alert elder sitting up in bed Const Other: Well-nourished well-developed Resp Other: Clear to auscultation bilaterally no wheezing Cardio Other: Regular rate and rhythm normal S1 and S2 I do hear approximately a 2+ systolic ejection murmur GI Other: Soft nontender nondistended Neuro Other: Alert awake and oriented x3 moving all limbs no focal deficits Psych Appearance: grossly normal Mental Status: mental status grossly normal Speech and Movement: speech and movement normal Objective Labs 06/27/23 04:15 06/26/23 19:33 Labs: Laboratory Results - last 24 hr 06/26/23 06/26/23 06/27/23 19:33 21:20 04:15 WBC 10.2 RBC 4.74 Hgb 15.0 14.4 Hct 42.0 41.0 MCV 88.7 MCH 31.7 MCHC 35.8 RDW 13.9 Plt Count 208 184 Neut % (Auto) 72.4 Lymph % (Auto) 17.9 L [place] % (Auto) 8.0 Eos % (Auto) 1.3 L Baso % (Auto) 0.4 Neut # (Auto) 7400 H Lymph # (Auto) 1800 [place] # (Auto) 800 Eos # (Auto) 100 Baso # (Auto) 0 PT 12.7 INR 1.1 APTT 32 35 D-Dimer 306 Sodium 141 Potassium 3.1 L Chloride 106 Carbon Dioxide 27 BUN 21 H Creatinine 1.36 H Estimated GFR 56 L BUN/Creatinine Ratio 15.4 Glucose 110 Calcium 9.8 Magnesium 2.0 Total Bilirubin 1.1 AST 25 ALT 25 Alkaline Phosphatase 74 Total Creatine Kinase 100 Troponin I < 0.012 < 0.012 Total Protein 8.2 Albumin 4.3 Globulin 3.9 Albumin/Globulin Ratio 1.1 Lipase 207 06/27/23 10:45 WBC RBC Hgb Hct MCV MCH MCHC RDW Plt Count Neut % (Auto) Lymph % (Auto) [place] % (Auto) Eos % (Auto) Baso % (Auto) Neut # (Auto) Lymph # (Auto) [place] # (Auto) Eos # (Auto) Baso # (Auto) PT INR APTT 30 D-Dimer Sodium Potassium Chloride Carbon Dioxide BUN Creatinine Estimated GFR BUN/Creatinine Ratio Glucose Calcium Magnesium Total Bilirubin AST ALT Alkaline Phosphatase Total Creatine Kinase Troponin I Total Protein Albumin Globulin Albumin/Globulin Ratio [facility]ase [facility] Medical History 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 dante/religious: Hinduism leisure activities: art (Pictures.) and other (TV, Yardwork.) Smoking Status: Never smoker Tobacco: How many years used: 0 quit status: quit date established (Never Started) second hand exposure: No alcohol intake: current substance use type: does not use Discharge Assessment & Plan Assessment and Plan Assessment: #chest pain rule out ACS Low risk stress test per Dr. Norris benign exam patient feeling better no more chest pain Follow-up echocardiogram results as outpatient Okay to discharge discussed plan with patient instructed to come back if symptoms recur #hypokalemia Mild will replete PO then recheck as outpatient #Schizophrenic Stable continue home medicine #hypertension Stable continue home meds dispo: home with family PCP: Levi MDM: sister Millie Discharge Plan Discharge Plan Patient Disposition: Home Discharge orders & Medications Prescriptions: Continued aspirin 325 MG tablet,delayed release (DR/EC) 325 mg PO QDAY Qty: 0 triamterene-hydrochlorothiazid 37.5-25 mg tablet 1 tab PO QDAY Qty: 90 3RF omeprazole 20 mg capsule,delayed release(DR/EC) 20 mg PO BID Qty: 60 0RF Rx Instructions: PT WILL NEED TO BE SEEN BEFORE NEXT REFILL 10/04/22 benztropine 2 mg tablet 2 mg PO BID trifluoperazine 10 mg tablet 10 mg PO ONCE PM testosterone 20.25 mg/1.25 gram (1.62 %) gel in metered-dose pump 1 pump topical DAILY Follow up/Referrals: Niall Sims MD [Primary Care Provider] - Visit Report/Discharge Packet Stand Alone Forms: Patient Portal/API, Stroke Signs & Symptoms Discharge Data Primary Care Provider: Niall Smis Attending Provider: Rommel Busch Admit Date/Time: 06/27/23 02:06 Quality VTE Deep Vein Thrombosis/Pulmonary Embolism Present on Admission: No
--- NOTE | 2023-06-27 19:29 | PC.NURSE ---
discharge paperwork reviewed with pt and pt's brother Eddie, both deny questions/concerns.
--- NOTE | 2023-07-07 14:36 | PC.NURSE ---
late entry- IV fluids discontinued when IV was discontinued prior to discharge per RN. 06/27 ~1905
== END 2023-06-27 19:29 | disposition home or self-care (01) ==
LOC: ED 06-27 02:06 → AC 06-27 02:06
PROVIDERS: Admitting Provider Family Medicine; Emergency Provider Emergency Medicine; PCP Family Medicine; Visit Provider Family Medicine
DX: R07.9 Chest pain, unspecified (principal); E11.9 Type 2 diabetes mellitus without complications; Z79.4 Long term (current) use of insulin; I10 Essential (primary) hypertension; F20.9 Schizophrenia, unspecified; E87.6 Hypokalemia
CPT/HCPCS: 36415; 71045; 78452; 80053; 82550; 83690; 83735; 84484; 85014; 85018; 85025; 85049; 85379; 85610; 85730; 93005; 93016; 93017; 93018; 93306; 96365; 96366; 96375; 99284; G0378; A9502; J1644

== ENCOUNTER → 2023-07-29 12:20 | Outpatient (CLI) | payer OTHER, SELFPAY ==
[2023-06-27 03:14] VITALS: BMI 32.2
--- NOTE | 2023-07-29 | DI.RAD.S_ITS ---
PROCEDURE: XR HAND RT MIN 3V INDICATIONS: THUMB PAIN TECHNIQUE: 3 views of the hand(s) acquired. COMPARISON: None. FINDINGS: Bones: No fractures or dislocations. Carpal bones are normally aligned. No suspicious bony lesions. Soft tissues: No suspicious soft tissue calcifications. IMPRESSION: No trauma found, source of pain is not identified. Dictated by: Stanton Desai M.D. on 07/29/2023 at 14:14 Approved by: Stanton Desai M.D. on 07/29/2023 at 14:15
== END ==
PROVIDERS: PCP Family Medicine; Referring Provider Family Medicine; Visit Provider Family Medicine
DX: M79.644 Pain in right finger(s) (principal)
CPT/HCPCS: 73130

== ENCOUNTER 2024-08-16 11:44 | Emergency (ER) | payer OTHER, SELFPAY ==
[2023-06-27 03:14] VITALS: BMI 32.2
[2024-08-16] VITALS (10 sets, daily range): BP systolic 171–173; BP diastolic 80–93; PULSE 58–69; RESP 20–44; TEMP 36.9; O2SAT 97–100; BMI 31.9
--- NOTE | 2024-08-16 12:11 | EKG_ITS ---
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
--- NOTE | 2024-08-16 12:11 | DI.RAD.S_ITS ---
PROCEDURE: XR CHEST 1V INDICATIONS: chest pain TECHNIQUE: One view of the chest was acquired. COMPARISON: [facility], CR, XR CHEST 1V, 06/26/2023, 19:51. FINDINGS: Surgical changes and devices: None. Lungs and pleura: Lungs are clear. No pleural effusions or pneumothorax. Mediastinum: Mediastinal contours appear normal. Heart size is normal. Bones and chest wall: No suspicious bony lesions. Overlying soft tissues appear unremarkable. IMPRESSION: No acute cardiopulmonary abnormality is seen. Dictated by: Sarah Don M.D. on 08/16/2024 at 13:08 Approved by: Sarah Don M.D. on 08/16/2024 at 13:08
[2024-08-16 12:33] LABS: Add Manual Diff / Slide Review NO; Basophils Absolute Auto 0 /uL (0-100); Basophils Percent Auto 0.4 % (0-2); Eosinophils Absolute Auto 200 /uL (0-450); Eosinophils Percent Auto 3.3 % (2-4); Hematocrit 40.1 % (41-53); Hemoglobin 14.4 g/dL (13.5-17.5); Lymphocytes Absolute Auto 1700 /uL (1100-4500); Lymphocytes Percent Auto 28.2 % (25-40); Mean Corpuscular HGB Conc 35.8 % (30-36); Mean Corpuscular Hemoglobin 31.4 PG (26-34); Mean Corpuscular Volume 87.7 fL (80-100); Monocytes Absolute Auto 400 /uL (0-900); Monocytes Percent Auto 7.3 % (3-14); Neutrophils Absolute Auto 3700 /uL (1500-7000); Neutrophils Percent Auto 60.8 % (50-75); Platelet Count 208 X10^3/uL (150-400); Red Blood Cell Count 4.57 X10^6/uL (4.5-5.9); Red Cell Distribution Width 13.3 % (11.6-14.8)
--- NOTE | 2024-08-16 12:35 | PC.NURSE ---
Pt came to the ED today with family member because he has run out of his schizophrenia medications. Spoke with pt's sister, who is medical POA, and she reports that pharmacy has medications ready, but they have been unable to pick them up due to other socioeconomic barriers and pt has ot taken meds x2 days. Pt c/o n/v, stomach ache and SHELTON. Sister states that they will be able to roller picker medications on Tuesday and would like to be able to give pt medications in ED and resolve his sx of n/v and SHELTON.
[2024-08-16 12:41] LABS: Alanine Aminotransferase 30 IU/L (<50); Albumin 4.4 g/dL (3.5-5.0); Albumin Globulin Ratio 1.2 (1.0-2.8); Alkaline Phosphatase 87 U/L (38-126); Aspartate Aminotransferase 34 IU/L (17-59); BUN Creatinine Ratio 14.8 (6-22); Bilirubin Total 0.8 mg/dL (0.2-1.3); Blood Urea Nitrogen 17 mg/dL (9-20); Calcium 9.6 mg/dL (8.4-10.2); Carbon Dioxide 26 mmol/L (22-32); Chloride 106 mmol/L (98-107); Creatine Kinase 82 U/L (55-170); Estimated Glomerular Filt Rate > 60 mL/min (>60); Globulin 3.7 g/dL (1.7-4.1); Glucose 129 mg/dL (80-110); HEMOLYSIS < 15 (0-50); Lipase 160 U/L (23-300); Potassium 3.6 mmol/L (3.4-5.1); Sodium 140 mmol/L (137-145); Total Protein 8.1 g/dL (6.3-8.2)
[2024-08-16 12:53] LABS: Troponin I 0.018 ng/mL (0.01-0.034)
--- NOTE | 2024-08-16 13:13 | ED.PSYCH ---
HPI - Psych General Chief Complaint: Psychiatric Symptoms Stated Complaint: med refill. vomiting Time Seen by Provider: 08/16/24 12:10 Source: patient Mode of arrival: Wheelchair History of Present Illness HPI Narrative: 74-year-old male with history of schizophrenia, believes he ate a ?bad potato? last night, has had nausea with multiple episodes of vomiting, no black or red color to his emesis, no abdominal cramping, denies diarrhea or loose stools, no change in his medications. Denies syncope or near-syncope symptoms. Still feels nauseated, feels like he can not keep anything down. Related Data Home Medications Medication Instructions Recorded Confirmed aspirin 325 mg tablet,delayed 325 mg PO QDAY ##0 08/03/16 06/27/23 release benztropine 2 mg tablet 2 mg PO BID 06/27/23 06/27/23 testosterone 1 pump topical DAILY 06/27/23 06/27/23 trifluoperazine 10 mg tablet 10 mg PO ONCE PM 06/27/23 06/27/23 Previous Rx's Medication Instructions Recorded triamterene 37.5 1 tab PO QDAY #90 tabs 12/27/19 mg-hydrochlorothiazide 25 mg tablet omeprazole 20 mg capsule,delayed 20 mg PO BID #60 caps 10/04/22 release Allergies Allergy/AdvReac Type Severity Reaction Status Date / Time codeine [CODEINE] Allergy Unknown Verified 08/30/22 15:14 meperidine [MEPERIDINE] Allergy Unknown Verified 08/30/22 15:14 Penicillins [PENICILLINS] Allergy Unknown Verified 08/30/22 15:14 prochlorperazine Allergy Unknown Verified 08/30/22 15:14 [PROCHLORPERAZINE] Patient History Medical History 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 dante/jainism: Latter-Day leisure activities: art (Pictures.) and other (TV, Yardwork.) Smoking Status: Never smoker Tobacco: How many years used: 0 quit status: quit date established (Never Started) second hand exposure: No alcohol intake: current substance use type: does not use Smoking Status: Never smoker alcohol intake frequency: holidays/special occasions only Substance Use Type: marijuana Exam Narrative Exam Narrative: GENERAL: Well-developed patient, in mild distress. Mild flight of ideas but easily redirectable, history of schizophrenia noted HEAD: Atraumatic. Normocephalic. EYES: Pupils equal round and reactive. Extraocular motions intact. No scleral icterus. No injection or drainage. ENT: Nose without bleeding, purulent drainage. Throat without erythema, tonsillar hypertrophy or exudate. Airway patent. NECK: Trachea midline. Non tender CARDIOVASCULAR: Regular rate and rhythm without murmurs, gallops, or rubs. RESPIRATORY: Clear to auscultation. Breath sounds equal bilaterally. No wheezes, rales, or rhonchi. GASTROINTESTINAL: Abdomen soft, non-tender, nondistended. EXTREMITIES: No edema or joint tenderness. BACK: Nontender without deformity or crepitance. No flank tenderness. NEURO: AOx3. Motor functions grossly nonfocal SKIN: No rash or erythema of visible areas Initial Vital Signs Initial Vital Signs: Vital Signs Temperature 98.4 F 08/16/24 11:53 Pulse Rate 58 L 08/16/24 11:53 Respiratory Rate 24 08/16/24 11:53 Blood Pressure 171/93 H 08/16/24 11:53 Pulse Oximetry 99 08/16/24 11:53 Oxygen Delivery Method Room Air 08/16/24 11:53 Course Orders Ordered: ED Orders 08/16/24 12:01 Consult to STATE FEDERAL RELATIONS DEPUTY DIRECTOR - Supervisor Feed House Stat 08/16/24 12:11 XR chest 1V Stat EKG-12 Lead Stat 08/16/24 12:20 Complete Blood Count AUTO DIFF Stat Comprehensive Metabolic Panel Stat Lipase Stat Troponin & CK Cardiac Panel Stat Discontinued Medications Benztropine Mesylate (Benztropine 2 Mg/2 Ml Ampul) 2 mg IV NOW ONE Stop: 08/16/24 14:35 Last Admin: 08/16/24 15:18 Dose: Not Given Documented By: MPO Benztropine Mesylate (Benztropine 1 Mg Tablet) 2 mg PO NOW ONE Stop: 08/16/24 15:01 Last Admin: 08/16/24 15:18 Dose: 2 mg Documented By: FRANCIS Sodium Chloride (Normal Saline 0.9%) 1,000 mls @ 1,000 mls/hr IV BOLUS ONE Stop: 08/16/24 15:04 Last Infusion: 08/16/24 15:20 Dose: Infused Documented By: Admin: 08/16/24 14:25 Dose: 1,000 mls/hr Documented By: FRANCIS Non-Formulary Medication (Trifluoperazine) 10 mg PO DAILY MARTINE Last Admin: 08/16/24 14:40 Dose: Not Given Documented By: FRANCIS Ondansetron HCl (Ondansetron 4 Mg/2 Ml Inj) 4 mg IV NOW ONE Stop: 08/16/24 14:06 Last Admin: 08/16/24 14:26 Dose: 4 mg Documented By: FRANCIS Ondansetron HCl (Ondansetron 4 Mg Odt Prepack) 1 bottle MISC DIRECTED ONE Stop: 08/16/24 14:13 Last Admin: 08/16/24 14:26 Dose: 1 bottle Documented By: FRANCIS Vital Signs Vital signs: Vital Signs - 8 hr 08/16/24 11:53 08/16/24 12:10 08/16/24 12:11 Temperature 98.4 F Pulse Rate 58 L 59 L Respiratory Rate 24 Blood Pressure 171/93 H 173/80 H Pulse Oximetry 99 99 Oxygen Delivery Method Room Air 08/16/24 12:11 08/16/24 12:30 08/16/24 13:00 Temperature Pulse Rate 59 L 60 61 Respiratory Rate 24 20 21 Blood Pressure Pulse Oximetry 99 98 99 Oxygen Delivery Method 08/16/24 13:30 08/16/24 14:00 08/16/24 14:30 Temperature Pulse Rate 59 L 64 62 Respiratory Rate 21 30 H 28 H Blood Pressure Pulse Oximetry 98 100 98 Oxygen Delivery Method 08/16/24 15:00 08/16/24 15:30 Temperature Pulse Rate 66 69 Respiratory Rate 22 44 H Blood Pressure Pulse Oximetry 97 99 Oxygen Delivery Method MDM - Psych Lab Data Attestation: I reviewed the patient's lab results. 08/16/24 12:20 08/16/24 12:20 Labs: Lab Results 08/16/24 Range/Units 12:20 WBC 6.0 (4.5-11.0) X10^3/uL RBC 4.57 (4.5-5.9) X10^6/uL Hgb 14.4 (13.5-17.5) g/dL Hct 40.1 L (41-53) % MCV 87.7 (80-100) fL MCH 31.4 (26-34) PG MCHC 35.8 (30-36) % RDW 13.3 (11.6-14.8) % Plt Count 208 (150-400) X10^3/uL Neut % (Auto) 60.8 (50-75) % Lymph % (Auto) 28.2 (25-40) % [place] % (Auto) 7.3 (3-14) % Eos % (Auto) 3.3 (2-4) % Baso % (Auto) 0.4 (0-2) % Neut # (Auto) 3700 (1298-4351) /uL Lymph # (Auto) 1700 (9189-5620) /uL [place] # (Auto) 400 (0-900) /uL Eos # (Auto) 200 (0-450) /uL Baso # (Auto) 0 (0-100) /uL Sodium 140 (137-145) mmol/L Potassium 3.6 (3.4-5.1) mmol/L Chloride 106 (98-107) mmol/L Carbon Dioxide 26 (22-32) mmol/L BUN 17 (9-20) mg/dL Creatinine 1.15 (0.66-1.25) mg/dL Estimated GFR > 60 (>60) mL/min BUN/Creatinine Ratio 14.8 (6-22) Glucose 129 H (80-110) mg/dL Calcium 9.6 (8.4-10.2) mg/dL Total Bilirubin 0.8 (0.2-1.3) mg/dL AST 34 (17-59) IU/L ALT 30 (<50) IU/L Alkaline Phosphatase 87 (38-126) U/L Total Creatine Kinase 82 (55-170) U/L Troponin I 0.018 (0.01-0.034) ng/mL Total Protein 8.1 (6.3-8.2) g/dL Albumin 4.4 (3.5-5.0) g/dL Globulin 3.7 (1.7-4.1) g/dL Albumin/Globulin Ratio 1.2 (1.0-2.8) Lipase 160 (23-300) U/L Imaging Data Chest x-ray: Radiologist's Impression: [address] [address] XRay Report Signed Patient: Hay Day MR#: [id number] : 1950 Acct:[id number] Age/Sex: 74 / M Date of Service: 08/16/24 Loc: ED Accession Number: [id number] Procedure: XR chest 1V Ordering Provider: Hay Davenport MD PROCEDURE: XR CHEST 1V INDICATIONS: chest pain TECHNIQUE: One view of the chest was acquired. COMPARISON: [facility], , XR CHEST 1V, 06/26/2023, 19:51. FINDINGS: Surgical changes and devices: None. Lungs and pleura: Lungs are clear. No pleural effusions or pneumothorax. Mediastinum: Mediastinal contours appear normal. Heart size is normal. Bones and chest wall: No suspicious bony lesions. Overlying soft tissues appear unremarkable. IMPRESSION: No acute cardiopulmonary abnormality is seen. Dictated by: Sraah Don M.D. on 08/16/2024 at 13:08 Approved by: Sarah Don M.D. on 08/16/2024 at 13:08 ECG Data Attestation: I personally reviewed and interpreted this ECG as follows: Interpretation: Normal sinus rhythm with rate of 61, LVH changes. T-wave inversions lateral leads. VT 170, QRS 106, QTC 440. [facility] Narrative Medical decision making narrative: 72-year-old male with history of schizophrenia, possible food exposure related nausea and vomiting, believes he ate a ?bad potato? last night, subsequent recurrent nonbloody emesis. Afebrile, sirs screen negative. Abdomen soft nontender. Labs pending. Screening EKG unremarkable. IV Zofran dose. Screening labs unremarkable. He feels dehydrated, we would like IV fluids, IV saline bolus ordered. Anticipate oral fluid challenge, hopefully discharge home patient financial services manager verbal consult, patient apparently is here primarily by her report to get refill benztropine 2 mg oral dose and trifluoperazine 10 mg oral dose, those prescriptions are waiting for him to be picked up tomorrow, but has not been able to pick them out because of various social barriers. We will order these medications if they can be given here today, if on formulary and available. Oral fluids trial Discharge Plan Departure Patient Disposition: Home Clinical Impression: Nausea & vomiting, Medication refill, History of schizophrenia Instructions: DI for Schizophrenia Activity Restrictions/Additional Instructions: Multiple episodes nausea with nonbloody emesis, possibly after eating suspected bad potatoes last night. Abdominal exam unremarkable. Screening labs unremarkable. IV fluids given. IV antinausea medications given. Home pack of antinausea medications to use if needed, to control any nausea symptoms. History of Barretts esophagus noted, continue use of your omeprazole antacid. Recheck with your regular doctor on Tuesday. Return to this/nearest emergency department for any change worsening symptoms or any concerns prior Refill your benztropine and trifluoperazine medications tomorrow as planned, apparently they are available your pharmacy. Prescriptions: No Action aspirin 325 MG tablet,delayed release (DR/EC) 325 mg PO QDAY Qty: 0 triamterene-hydrochlorothiazid 37.5-25 mg tablet 1 tab PO QDAY Qty: 90 3RF omeprazole 20 mg capsule,delayed release(DR/EC) 20 mg PO BID Qty: 60 0RF Rx Instructions: PT WILL NEED TO BE SEEN BEFORE NEXT REFILL 10/04/22 benztropine 2 mg tablet 2 mg PO BID trifluoperazine 10 mg tablet 10 mg PO ONCE PM testosterone 20.25 mg/1.25 gram (1.62 %) gel in metered-dose pump 1 pump topical DAILY Referrals: Niall Sims MD [Primary Care Provider] - Stand Alone Forms: Patient Portal/API/Survey
[2024-08-16] MEDS: SODIUM CHLORIDE 0.9% 1,000 ML 1000 ML IV (14:25)
[2024-08-16] MEDS: ONDANSETRON 4 MG/2 ML INJ IV (14:26)
[2024-08-16] MEDS: ONDANSETRON 4 MG ODT PREPACK 1 BOTTLE MISC (14:26)
[2024-08-16] MEDS: BENZTROPINE 1 MG TABLET 2 MG PO (15:18)
--- NOTE | 2024-08-16 15:45 | CM.SWNOTE ---
ED BIOINFORMATICS ASSISTANT Note Patient is 74 y/o male who presents to the ED with brother due to concern for patient's N/V and dizziness and concern that patient has not taken his rx for a few days (benzotropine and trifluoperazine) for Schizophrenia dx. Patient's PCP is Dr. Sims, Patient has [facility] [employer] insurance. Patient has hx of Schizophrenia, GERD, Gonzales's Esophagus w/o dysplasia and essential hypertension. RN has extensive conversation with patient's sister (DPOA) it is reported that patient has not had his rx for a few days and rx is waiting for him at the pharmacy and they plan to pick it up tomorrow. It is reported that the family has limited access to transportation. BIOINFORMATICS ASSISTANT enters room to meet with patient, patient presents as A/Ox4, loquacious and cheerful. Patient states that he resides with his sister and brother in law at [facility]. It is reported that they are on waiting lists for low income housing. Patient states that he receives rides from his family. Patient states that all of his needs are met at home & he feels safe at home. Patient states he came to the ED today because he had a potato last night that made him feel sick and dizzy. 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 Patient is provided one of his rx in the ED, the other rx is not available at this ED. Patient's sister is informed of this. Plan: patient to d/c to home with family upon medical clearance, family to seed cone picker patient's rx tomorrow, patient to f/u with PCP. KENDRA Caldwell
== END 2024-08-16 16:09 | disposition home or self-care (01) ==
PROVIDERS: Emergency Provider Emergency Medicine; PCP Family Medicine
DX: R11.2 Nausea with vomiting, unspecified (principal); R07.9 Chest pain, unspecified; Z76.0 Encounter for issue of repeat prescription; Z86.59 Personal history of other mental and behavioral disorders
CPT/HCPCS: 36415; 71045; 80053; 82550; 83690; 84484; 85025; 93005; 96361; 96374; 99284; J2405

== ENCOUNTER 2025-03-01 12:37 | Observation (INO) | payer MEDICARE, SELFPAY ==
[2023-06-27 03:14] VITALS: BMI 32.2
[2025-03-01] VITALS (33 sets, daily range): BP systolic 141–223; BP diastolic 71–98; PULSE 64–97; RESP 16–31; TEMP 36.4–36.8; O2SAT 95–100; BMI 31.6
--- NOTE | 2025-03-01 13:25 | DI.CT.S_ITS ---
PROCEDURE: CT ABDOMEN PELVIS W CON INDICATIONS: N/V/D; nonfocal pain TECHNIQUE: After the administration of intravenous contrast, axial sections acquired from the lung bases to the pubic symphysis. Coronal and sagittal reformats were performed. For radiation dose reduction, the following was used: automated exposure control, adjustment of mA and/or kV according to patient size. COMPARISON: [facility], CT, CT HEAD/BRAIN WO CON, 03/01/2025, 14:13. [facility], CR, XR CHEST 1V, 03/01/2025, 13:28. FINDINGS: Image quality: Diagnostic. Lower Chest: Incidental note is made of bilateral gynecomastia. ABDOMEN: Liver: No solid mass. Gallbladder: Removed. Biliary ducts: Moderate intrahepatic biliary ductal dilatation is seen, particularly on the left side. The common bile duct measures 8 mm. Within the left liver, there is a water density nonenhancing cyst seen that measures 3.6 cm. Pancreas: No ductal dilation. Spleen: Size is within normal limits. Adrenal Glands: No adrenal nodules. Kidneys and Ureters: No hydronephrosis. No solid mass. No complex renal cystic lesion which requires follow up. Stomach and Bowel: Moderate generalized colonic wall thickening is seen. No dilated loops of small bowel are seen. Peritoneum: No abnormal intraperitoneal fluid. No free air. Ventral Wall: No significant ventral hernia. Abdominal Nodes: No retroperitoneal or mesenteric adenopathy by size criteria. Vessels: Aorta and inferior vena cava are normal in size. Atherosclerotic calcification is noted. PELVIS: Pelvic Organs: Unremarkable. Bladder: No bladder wall thickening, accounting for underdistention. Pelvic Nodes: No enlarged lymph nodes. Miscellaneous: Bilateral fat containing inguinal hernias are seen, left larger than right. Bones: No aggressive osseous abnormality. Age-appropriate bony degenerative changes are seen. IMPRESSION: Intrahepatic biliary ductal dilatation is seen, which is worse than would be expected for a patient of this age with prior cholecystectomy. Although no mass is seen, differential diagnosis includes underlying neoplasm. - For further evaluation, please consider a dedicated liver protocol MRI without and with Eovist IV contrast (assuming that there is no contraindication to MRI). Moderate generalized colonic wall thickening can be seen. Please correlate with potential infectious and inflammatory causes of colitis. No findings of perforation or abscess can be seen. Additional findings: Gynecomastia Simple left liver cyst Cholecystectomy Bilateral fat containing inguinal hernias Dictated by: Maico Cleveland M.D. on 03/01/2025 at 13:41 Approved by: Maico Cleveland M.D. on 03/01/2025 at 13:45
--- NOTE | 2025-03-01 13:25 | DI.CT.S_ITS ---
PROCEDURE: CT HEAD/BRAIN WO CON INDICATIONS: Vomiting, hypertension, pituitary tumor TECHNIQUE: Noncontrast 4.5 mm thick angled axial sections acquired from the foramen magnum to the vertex, with coronal and sagittal reformats. For radiation dose reduction, the following was used: automated exposure control, adjustment of mA and/or kV according to patient size. COMPARISON: [facility], CT, CT ABDOMEN PELVIS W CON, 03/01/2025, 14:13. FINDINGS: Image quality: Streak artifact can be seen through the skull base. CSF spaces: Basal cisterns are patent. No extra-axial fluid collections. The ventricles are symmetric in size and shape. Brain: No intracranial bleeds or mass effect. There is cerebral volume loss, with resultant ventricular and sulcal prominence. There are periventricular and deep white matter chronic small vessel ischemic changes. There is intracranial internal carotid artery atherosclerosis. Skull and face: Calvarium and visualized facial bones appear intact, without suspicious lesions. Sinuses: Visualized sinuses and mastoids are clear. IMPRESSION: No acute intracranial pathology. To the limits of this noncontrast study, no findings of intracranial masses or mass effect can be seen. Dictated by: Maico Cleveland M.D. on 03/01/2025 at 13:37 Approved by: Maico Cleveland M.D. on 03/01/2025 at 13:38
--- NOTE | 2025-03-01 13:30 | ED.NAVMDI ---
HPI - Nausea/Vomiting/Diarrhea <Keila Gupta PA-C - Last Filed: 03/01/25 19:55> General Chief complaint: Nausea/Vomiting/Diarrhea Stated complaint: nauseas dry heaving sent by pcp Time Seen by Provider: 03/01/25 13:15 Source: family Mode of arrival: Family Vehicle History of Present Illness HPI Narrative: Mr. Day is a very pleasant 74-year-old male with a past medical history of schizophrenia, hypertension, GERD, Schatzki's ring, pituitary tumor who presents to the emergency department for nausea, vomiting, diarrhea x 2 days. Patient is a somewhat poor historian. He is here with his brother, I also spoke with his sister who is his POA who he lives with. States that he has been having vomiting and dry heaving x2 days, he is not able to keep down any food or fluids. The vomiting is nonbloody. He denies eating any abnormal foods, no sick contacts. Sister states that he had similar symptoms in the past that were from food poisoning. Reports that he takes benztropine and trifluoperazine for tremors, tremors have been slightly worse since he has been sick. Patient denies fevers, chills, chest pain, abdominal pain, headache, visual disturbance, dysuria. Brother states that he did have a fever at home. PCP was called and advised coming to the ER for possible IV fluids. He does use hearing aids. POA sister, Ciarra, phone number on file. Related Data Home Medications ?Medication ?Instructions ?Recorded ?Confirmed aspirin 325 mg tablet,delayed 325 mg PO QDAY ##0 08/03/16 01/17/25 release benztropine 2 mg tablet 2 mg PO BID 06/27/23 03/01/25 testosterone 1 pump topical DAILY 06/27/23 01/17/25 trifluoperazine 10 mg tablet 10 mg PO ONCE PM 06/27/23 03/01/25 losartan 50 mg tablet 50 mg PO DAILY 01/17/25 03/01/25 rosuvastatin 10 mg tablet 10 mg PO ONCE PM 01/17/25 03/01/25 Previous Rx's ?Medication ?Instructions ?Recorded triamterene 37.5 1 tab PO QDAY #90 tabs 12/27/19 mg-hydrochlorothiazide 25 mg tablet omeprazole 20 mg capsule,delayed 20 mg PO BID #60 caps 10/04/22 release potassium chloride 20 mEq oral 20 meq PO BID #6 ea 03/07/25 packet potassium chloride 20 mEq oral 20 meq PO BID #6 ea 03/07/25 packet Allergies Allergy/AdvReac Type Severity Reaction Status Date / Time codeine (CODEINE) Allergy Unknown Verified 03/07/25 11:15 meperidine (MEPERIDINE) Allergy Unknown Verified 03/07/25 11:15 prochlorperazine Allergy Unknown Verified 03/07/25 11:15 (PROCHLORPERAZINE) Review of Systems <Keila Gupta PA-C - Last Filed: 03/01/25 19:55> Review of Systems ROS Unobtainable: All systems reviewed & are unremarkable except as noted in HPI and below Patient History <Keila Gupta PA-C - Last Filed: 03/01/25 19:55> Medical History Schatzki's ring Hypogonadism in male 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 Patient is in no acute distress however he does have intermittent tremors of the upper and lower extremities, he can provide only minimal history on his own however he can answer direct questions without difficulty. HEAD: Atraumatic. Normocephalic. EYES: PERRL. Extraocular motions intact. No scleral icterus. No injection or drainage. NECK: Trachea midline. Cervical ROM intact. CARDIOVASCULAR: Regular rate and rhythm. Possible systolic murmur. RESPIRATORY: ?Nonlabored respirations. ?Speaking in clear, full sentences. ?Clear to auscultation. Breath sounds equal bilaterally. No wheezes, rales, or rhonchi. ? GASTROINTESTINAL: Abdomen soft, non-tender, nondistended. BS present. EXTREMITIES: No edema or joint tenderness. NEURO: Very hard of hearing. Is alert, only able to answer straightforward questions, provides minimal history, relies on POA for majority of history. Has intermittent tremors of upper and lower extremities that do intermittently resolve completely and then return. Able to move upper and lower extremities appropriately, and sensation intact to light touch throughout extremities. SKIN: No rash or erythema of visible areas Initial Vital Signs Initial Vital Signs: Vital Signs Temperature 98.3 F 03/01/25 12:48 Pulse Rate 97 H 03/01/25 12:48 Respiratory Rate 16 03/01/25 12:48 Blood Pressure 209/91 H 03/01/25 12:48 Pulse Oximetry 98 03/01/25 12:48 Oxygen Delivery Method Room Air 03/01/25 12:48 <Olive Wilde DO - Last Filed: 03/11/25 19:38> Initial Vital Signs Initial Vital Signs: Vital Signs Temperature 98.3 F 03/01/25 12:48 Pulse Rate 97 H 03/01/25 12:48 Respiratory Rate 16 03/01/25 12:48 Blood Pressure 209/91 H 03/01/25 12:48 Pulse Oximetry 98 03/01/25 12:48 Oxygen Delivery Method Room Air 03/01/25 12:48 Course <Keila Gupta PA-C - Last Filed: 03/01/25 19:55> Orders Ordered: Discontinued Medications Acetaminophen (Acetaminophen 325 Mg Tablet) 650 mg PO Q6H PRN PRN Reason: Fever/Mild Pain (1-3) Last Admin: 03/02/25 20:51 Dose: 650 mg Documented By: FUAD Aspirin (Aspirin Ec 325 Mg Tablet) 325 mg PO DAILY MARTINE Last Admin: 03/03/25 08:18 Dose: 325 mg Documented By: Admin: 03/02/25 08:39 Dose: 325 mg Documented By: UJLIO Atorvastatin Calcium (Atorvastatin 20 Mg Tablet) 20 mg PO BEDTIME [facility] Last Admin: 03/02/25 20:51 Dose: 20 mg Documented By: FUAD Benztropine Mesylate (Benztropine 1 Mg Tablet) 2 mg PO NOW ONE Stop: 03/01/25 14:05 Last Admin: 03/01/25 14:23 Dose: 2 mg Documented By: MICHEL Benztropine Mesylate (Benztropine 1 Mg Tablet) 2 mg PO BID [facility] Last Admin: 03/03/25 08:32 Dose: 2 mg Documented By: Admin: 03/02/25 20:52 Dose: 2 mg Documented By: Admin: 03/02/25 08:39 Dose: 2 mg Documented By: JULIO Calcium Carbonate (Calcium Carbonate 500 Mg Tab) 1,000 mg PO Q4HR PRN PRN Reason: Dyspepsia Enoxaparin Sodium (Enoxaparin 40 Mg/0.4 Ml Syringe) 40 mg SUBCUT DAILY [facility] Last Admin: 03/03/25 08:19 Dose: 40 mg Documented By: Admin: 03/02/25 08:38 Dose: 40 mg Documented By: JULIO Hydrochlorothiazide (Hydrochlorothiazide 25 Mg Tablet) 25 mg PO DAILY [facility] Last Admin: 03/03/25 08:19 Dose: 25 mg Documented By: Admin: 03/02/25 08:40 Dose: 25 mg Documented By: JULIO Sodium Chloride (Normal Saline 0.9%) 1,000 mls @ 1,000 mls/hr IV BOLUS ONE Stop: 03/01/25 14:24 Last Infusion: 03/01/25 18:40 Dose: Infused Documented By: Admin: 03/01/25 13:42 Dose: 1,000 mls/hr Documented By: MICHEL POTASSIUM CHLORIDE IN WATER (Potassium Cl 10 Meq/100 Ml Daiana) 10 meq in 100 mls @ 100 mls/hr IV Q1H MARTINE Stop: 03/01/25 18:14 Last Infusion: 03/01/25 18:41 Dose: Infused Documented By: Admin: 03/01/25 17:36 Dose: 100 mls/hr Documented By: Infusion: 03/01/25 17:36 Dose: Infused Documented By: Admin: 03/01/25 16:31 Dose: 100 mls/hr Documented By: Infusion: 03/01/25 16:31 Dose: Infused Documented By: Admin: 03/01/25 15:28 Dose: 100 mls/hr Documented By: Infusion: 03/01/25 15:28 Dose: Infused Documented By: Admin: 03/01/25 14:25 Dose: 100 mls/hr Documented By: MICHEL Sodium Chloride (Normal Saline 0.9%) 1,000 mls @ 100 mls/hr IV CONT [facility] Last Admin: 03/03/25 08:33 Dose: 100 mls/hr Documented By: Infusion: 03/03/25 08:33 Dose: Infused Documented By: Admin: 03/02/25 23:15 Dose: 100 mls/hr Documented By: Infusion: 03/02/25 23:13 Dose: Infused Documented By: Admin: 03/02/25 13:13 Dose: 100 mls/hr Documented By: Infusion: 03/02/25 13:06 Dose: Infused Documented By: Admin: 03/02/25 03:06 Dose: 100 mls/hr Documented By: FUAD Losartan Potassium (Losartan 50 Mg Tablet) 50 mg PO DAILY [facility] Last Admin: 03/03/25 08:18 Dose: 50 mg Documented By: Admin: 03/02/25 08:39 Dose: 50 mg Documented By: JULIO Naloxone HCl (Naloxone 0.4 Mg/Ml Vial) 0.2 mg IV Q2MIN PRN PRN Reason: Opiate Reversal Non-Formulary Medication (Omeprazole) 20 mg PO BID [facility] Non-Formulary Medication (Rosuvastatin) 10 mg PO ONCE PM [facility] Non-Formulary Medication (Trifluoperazine) 10 mg PO BEDTIME [facility] Last Admin: 03/02/25 20:53 Dose: Not Given Documented By: FUAD Ondansetron HCl (Ondansetron 4 Mg/2 Ml Inj) 4 mg IV NOW PRN PRN Reason: Nausea And Vomiting Last Admin: 03/01/25 16:35 Dose: 4 mg Documented By: MICHEL Ondansetron HCl (Ondansetron 4 Mg Odt) 4 mg PO NOW PRN PRN Reason: Nausea And Vomiting Ondansetron HCl (Ondansetron 4 Mg/2 Ml Inj) 4 mg IV NOW ONE Stop: 03/01/25 13:26 Last Admin: 03/01/25 13:42 Dose: 4 mg Documented By: MICHEL Ondansetron HCl (Ondansetron 4 Mg/2 Ml Inj) 4 mg IV Q8HR PRN PRN Reason: Nausea And Vomiting Last Admin: 03/02/25 20:51 Dose: 4 mg Documented By: FUAD Pantoprazole Sodium (Pantoprazole 40 Mg Vial) 40 mg IV NOW ONE Stop: 03/01/25 13:26 Last Admin: 03/01/25 13:42 Dose: 40 mg Documented By: MICHEL Pantoprazole Sodium (Pantoprazole Dr 20 Mg Tablet) 20 mg PO 0600,2100 [facility] Last Admin: 03/03/25 06:23 Dose: 20 mg Documented By: Admin: 03/02/25 20:51 Dose: 20 mg Documented By: Admin: 03/02/25 07:26 Dose: 20 mg Documented By: FUAD Potassium Chloride (Potassium Chloride 20 Meq Tab) 40 meq PO NOW ONE Stop: 03/01/25 19:53 Last Admin: 03/01/25 19:59 Dose: Not Given Documented By: MICHEL Potassium Chloride (Potassium Chloride 20 Meq/15 Ml Udc) 40 meq PO NOW ONE Stop: 03/01/25 20:01 Last Admin: 03/01/25 20:10 Dose: 40 meq Documented By: MACO Potassium Chloride (Potassium Chloride 20 Meq Tab) 40 meq PO Q6H [facility] Stop: 03/02/25 17:31 Last Admin: 03/02/25 16:53 Dose: 40 meq Documented By: Admin: 03/02/25 11:23 Dose: 40 meq Documented By: JULIO Sodium Chloride (Sodium Chloride 0.9% Flush) 10 ml IV BID [facility] Consultations Consultation #1: Discussed case with hospitalist Dr. Pugh, he recommends consultation with GI for further recommendations as if patient's symptoms are a result of a bile duct problem, patient may require transfer as we do not have GI/ERCP capabilities here Time: 17:41 Consultation #2: Spoke with [facility] Dr. Waggoner. He recommends obtaining right upper quadrant ultrasound, trending LFTs, can call back if ultrasound is concerning. Time: 18:03 Vital Signs Vital signs: Vital Signs - 8 hr 03/01/25 12:48 03/01/25 12:58 03/01/25 13:00 Temperature 98.3 F Pulse Rate 97 H 70 69 Respiratory Rate 16 21 Blood Pressure 209/91 H Pulse Oximetry 98 100 100 Oxygen Delivery Method Room Air 03/01/25 13:00 03/01/25 13:30 03/01/25 13:40 Temperature Pulse Rate 74 Respiratory Rate 22 Blood Pressure 209/91 H 172/73 H Pulse Oximetry 99 Oxygen Delivery Method 03/01/25 13:40 03/01/25 14:00 03/01/25 14:00 Temperature Pulse Rate 75 75 Respiratory Rate 23 23 Blood Pressure 141/77 H Pulse Oximetry 100 99 Oxygen Delivery Method 03/01/25 14:24 03/01/25 14:25 03/01/25 14:25 Temperature Pulse Rate 79 79 Respiratory Rate 22 Blood Pressure 161/73 H Pulse Oximetry 100 100 Oxygen Delivery Method 03/01/25 14:30 03/01/25 14:31 03/01/25 14:31 Temperature Pulse Rate 81 76 Respiratory Rate 22 26 H Blood Pressure 153/71 H Pulse Oximetry 95 Oxygen Delivery Method 03/01/25 15:00 03/01/25 15:08 03/01/25 15:08 Temperature Pulse Rate 78 67 Respiratory Rate 25 H 24 Blood Pressure 161/73 H Pulse Oximetry 98 100 Oxygen Delivery Method 03/01/25 15:09 03/01/25 15:09 03/01/25 15:10 Temperature Pulse Rate 69 Respiratory Rate 21 Blood Pressure 160/74 H 149/74 H Pulse Oximetry 100 Oxygen Delivery Method 03/01/25 15:10 03/01/25 15:11 03/01/25 15:11 Temperature Pulse Rate 68 70 Respiratory Rate 21 23 Blood Pressure 143/76 H Pulse Oximetry 99 99 Oxygen Delivery Method 03/01/25 15:12 03/01/25 15:12 03/01/25 15:30 Temperature Pulse Rate 71 Respiratory Rate 23 Blood Pressure 160/76 H 154/74 H Pulse Oximetry 100 Oxygen Delivery Method 03/01/25 15:30 03/01/25 16:00 03/01/25 16:01 Temperature Pulse Rate 78 80 Respiratory Rate 22 29 H Blood Pressure 223/98 H Pulse Oximetry 99 99 Oxygen Delivery Method 03/01/25 16:01 03/01/25 16:30 03/01/25 16:51 Temperature Pulse Rate 85 75 Respiratory Rate 23 Blood Pressure 197/93 H Pulse Oximetry 100 Oxygen Delivery Method 03/01/25 16:51 03/01/25 17:00 03/01/25 17:01 Temperature Pulse Rate 76 72 Respiratory Rate 20 Blood Pressure 190/79 H Pulse Oximetry 98 99 Oxygen Delivery Method 03/01/25 17:01 03/01/25 17:30 03/01/25 17:30 Temperature Pulse Rate 74 66 Respiratory Rate 23 Blood Pressure 161/80 H Pulse Oximetry 99 Oxygen Delivery Method <Olive Wilde, - Last Filed: 03/11/25 19:38> Orders Ordered: Discontinued Medications Acetaminophen (Acetaminophen 325 Mg Tablet) 650 mg PO Q6H PRN PRN Reason: Fever/Mild Pain (1-3) Last Admin: 03/02/25 20:51 Dose: 650 mg Documented By: FUAD Aspirin (Aspirin Ec 325 Mg Tablet) 325 mg PO DAILY [facility] Last Admin: 03/03/25 08:18 Dose: 325 mg Documented By: Admin: 03/02/25 08:39 Dose: 325 mg Documented By: JULIO Atorvastatin Calcium (Atorvastatin 20 Mg Tablet) 20 mg PO BEDTIME [facility] Last Admin: 03/02/25 20:51 Dose: 20 mg Documented By: FUAD Benztropine Mesylate (Benztropine 1 Mg Tablet) 2 mg PO NOW ONE Stop: 03/01/25 14:05 Last Admin: 03/01/25 14:23 Dose: 2 mg Documented By: MICHEL Benztropine Mesylate (Benztropine 1 Mg Tablet) 2 mg PO BID [facility] Last Admin: 03/03/25 08:32 Dose: 2 mg Documented By: Admin: 03/02/25 20:52 Dose: 2 mg Documented By: Admin: 03/02/25 08:39 Dose: 2 mg Documented By: JULIO Calcium Carbonate (Calcium Carbonate 500 Mg Tab) 1,000 mg PO Q4HR PRN PRN Reason: Dyspepsia Enoxaparin Sodium (Enoxaparin 40 Mg/0.4 Ml Syringe) 40 mg SUBCUT DAILY [facility] Last Admin: 03/03/25 08:19 Dose: 40 mg Documented By: Admin: 03/02/25 08:38 Dose: 40 mg Documented By: JULIO Hydrochlorothiazide (Hydrochlorothiazide 25 Mg Tablet) 25 mg PO DAILY [facility] Last Admin: 03/03/25 08:19 Dose: 25 mg Documented By: Admin: 03/02/25 08:40 Dose: 25 mg Documented By: JULIO Sodium Chloride (Normal Saline 0.9%) 1,000 mls @ 1,000 mls/hr IV BOLUS ONE Stop: 03/01/25 14:24 Last Infusion: 03/01/25 18:40 Dose: Infused Documented By: Admin: 03/01/25 13:42 Dose: 1,000 mls/hr Documented By: MICHEL POTASSIUM CHLORIDE IN WATER (Potassium Cl 10 Meq/100 Ml Daiana) 10 meq in 100 mls @ 100 mls/hr IV Q1H [facility]ARTINE Stop: 03/01/25 18:14 Last Infusion: 03/01/25 18:41 Dose: Infused Documented By: Admin: 03/01/25 17:36 Dose: 100 mls/hr Documented By: Infusion: 03/01/25 17:36 Dose: Infused Documented By: Admin: 03/01/25 16:31 Dose: 100 mls/hr Documented By: Infusion: 03/01/25 16:31 Dose: Infused Documented By: Admin: 03/01/25 15:28 Dose: 100 mls/hr Documented By: Infusion: 03/01/25 15:28 Dose: Infused Documented By: Admin: 03/01/25 14:25 Dose: 100 mls/hr Documented By: MICHEL Sodium Chloride (Normal Saline 0.9%) 1,000 mls @ 100 mls/hr IV CONT MARTINE Last Admin: 03/03/25 08:33 Dose: 100 mls/hr Documented By: Infusion: 03/03/25 08:33 Dose: Infused Documented By: Admin: 03/02/25 23:15 Dose: 100 mls/hr Documented By: Infusion: 03/02/25 23:13 Dose: Infused Documented By: Admin: 03/02/25 13:13 Dose: 100 mls/hr Documented By: Infusion: 03/02/25 13:06 Dose: Infused Documented By: Admin: 03/02/25 03:06 Dose: 100 mls/hr Documented By: FUAD Losartan Potassium (Losartan 50 Mg Tablet) 50 mg PO DAILY [facility]ARTINE Last Admin: 03/03/25 08:18 Dose: 50 mg Documented By: Admin: 03/02/25 08:39 Dose: 50 mg Documented By: JULIO Naloxone HCl (Naloxone 0.4 Mg/Ml Vial) 0.2 mg IV Q2MIN PRN PRN Reason: Opiate Reversal Non-Formulary Medication (Omeprazole) 20 mg PO BID [facility] Non-Formulary Medication (Rosuvastatin) 10 mg PO ONCE PM [facility] Non-Formulary Medication (Trifluoperazine) 10 mg PO BEDTIME [facility] Last Admin: 03/02/25 20:53 Dose: Not Given Documented By: FUAD Ondansetron HCl (Ondansetron 4 Mg/2 Ml Inj) 4 mg IV NOW PRN PRN Reason: Nausea And Vomiting Last Admin: 03/01/25 16:35 Dose: 4 mg Documented By: MICHEL Ondansetron HCl (Ondansetron 4 Mg Odt) 4 mg PO NOW PRN PRN Reason: Nausea And Vomiting Ondansetron HCl (Ondansetron 4 Mg/2 Ml Inj) 4 mg IV NOW ONE Stop: 03/01/25 13:26 Last Admin: 03/01/25 13:42 Dose: 4 mg Documented By: MICHEL Ondansetron HCl (Ondansetron 4 Mg/2 Ml Inj) 4 mg IV Q8HR PRN PRN Reason: Nausea And Vomiting Last Admin: 03/02/25 20:51 Dose: 4 mg Documented By: FUAD Pantoprazole Sodium (Pantoprazole 40 Mg Vial) 40 mg IV NOW ONE Stop: 03/01/25 13:26 Last Admin: 03/01/25 13:42 Dose: 40 mg Documented By: MICHEL Pantoprazole Sodium (Pantoprazole Dr 20 Mg Tablet) 20 mg PO 0600,2100 [facility] Last Admin: 03/03/25 06:23 Dose: 20 mg Documented By: Admin: 03/02/25 20:51 Dose: 20 mg Documented By: Admin: 03/02/25 07:26 Dose: 20 mg Documented By: FUAD Potassium Chloride (Potassium Chloride 20 Meq Tab) 40 meq PO NOW ONE Stop: 03/01/25 19:53 Last Admin: 03/01/25 19:59 Dose: Not Given Documented By: MICHEL Potassium Chloride (Potassium Chloride 20 Meq/15 Ml Udc) 40 meq PO NOW ONE Stop: 03/01/25 20:01 Last Admin: 03/01/25 20:10 Dose: 40 meq Documented By: DKB Potassium Chloride (Potassium Chloride 20 Meq Tab) 40 meq PO Q6H [facility]ARTINE Stop: 03/02/25 17:31 Last Admin: 03/02/25 16:53 Dose: 40 meq Documented By: Admin: 03/02/25 11:23 Dose: 40 meq Documented By: MM Sodium Chloride (Sodium Chloride 0.9% Flush) 10 ml IV BID MARTINE Vital Signs Vital signs: Vital Signs - 8 hr 03/01/25 12:48 03/01/25 12:58 03/01/25 13:00 Temperature 98.3 F Pulse Rate 97 H 70 69 Respiratory Rate 16 21 Blood Pressure 209/91 H Pulse Oximetry 98 100 100 Oxygen Delivery Method Room Air 03/01/25 13:00 03/01/25 13:30 03/01/25 13:40 Temperature Pulse Rate 74 Respiratory Rate 22 Blood Pressure 209/91 H 172/73 H Pulse Oximetry 99 Oxygen Delivery Method 03/01/25 13:40 03/01/25 14:00 03/01/25 14:00 Temperature Pulse Rate 75 75 Respiratory Rate 23 23 Blood Pressure 141/77 H Pulse Oximetry 100 99 Oxygen Delivery Method 03/01/25 14:24 03/01/25 14:25 03/01/25 14:25 Temperature Pulse Rate 79 79 Respiratory Rate 22 Blood Pressure 161/73 H Pulse Oximetry 100 100 Oxygen Delivery Method 03/01/25 14:30 03/01/25 14:31 03/01/25 14:31 Temperature Pulse Rate 81 76 Respiratory Rate 22 26 H Blood Pressure 153/71 H Pulse Oximetry 95 Oxygen Delivery Method 03/01/25 15:00 03/01/25 15:08 03/01/25 15:08 Temperature Pulse Rate 78 67 Respiratory Rate 25 H 24 Blood Pressure 161/73 H Pulse Oximetry 98 100 Oxygen Delivery Method 03/01/25 15:09 03/01/25 15:09 03/01/25 15:10 Temperature Pulse Rate 69 Respiratory Rate 21 Blood Pressure 160/74 H 149/74 H Pulse Oximetry 100 Oxygen Delivery Method 03/01/25 15:10 03/01/25 15:11 03/01/25 15:11 Temperature Pulse Rate 68 70 Respiratory Rate 21 23 Blood Pressure 143/76 H Pulse Oximetry 99 99 Oxygen Delivery Method 03/01/25 15:12 03/01/25 15:12 03/01/25 15:30 Temperature Pulse Rate 71 Respiratory Rate 23 Blood Pressure 160/76 H 154/74 H Pulse Oximetry 100 Oxygen Delivery Method 03/01/25 15:30 03/01/25 16:00 03/01/25 16:01 Temperature Pulse Rate 78 80 Respiratory Rate 22 29 H Blood Pressure 223/98 H Pulse Oximetry 99 99 Oxygen Delivery Method 03/01/25 16:01 03/01/25 16:30 03/01/25 16:51 Temperature Pulse Rate 85 75 Respiratory Rate 23 Blood Pressure 197/93 H Pulse Oximetry 100 Oxygen Delivery Method 03/01/25 16:51 03/01/25 17:00 03/01/25 17:01 Temperature Pulse Rate 76 72 Respiratory Rate 20 Blood Pressure 190/79 H Pulse Oximetry 98 99 Oxygen Delivery Method 03/01/25 17:01 03/01/25 17:30 03/01/25 17:30 Temperature Pulse Rate 74 66 Respiratory Rate 23 Blood Pressure 161/80 H Pulse Oximetry 99 Oxygen Delivery Method MDM - Nausea/Vomiting/Diarrhea <Keila Gupta PA-C - Last Filed: 03/01/25 19:55> Medical Records Attestation: I reviewed the patient's medical records. Lab Data 03/02/25 09:00 03/03/25 06:35 Labs: Lab Results 03/01/25 03/01/25 03/01/25 Range/Units 13:15 13:52 14:36 WBC 7.0 (4.5-11.0) X10^3/uL RBC 4.61 (4.5-5.9) X10^6/uL Hgb 14.5 (13.5-17.5) g/dL Hct 39.6 L (41-53) % MCV 86.0 (80-100) fL MCH 31.5 (26-34) PG MCHC 36.6 H (30-36) % RDW 14.0 (11.6-14.8) % Plt Count 223 (150-400) X10^3/uL Neut % (Auto) 76.8 H (50-75) % Lymph % (Auto) 16.4 L (25-40) % Mcminn % (Auto) 6.4 (3-14) % Eos % (Auto) 0.2 L (2-4) % Baso % (Auto) 0.2 (0-2) % Neut # (Auto) 5300 (1963-3286) /uL Lymph # (Auto) 1100 (9093-1332) /uL Mcminn # (Auto) 400 (0-900) /uL Eos # (Auto) 0 (0-450) /uL Baso # (Auto) 0 (0-100) /uL Sodium 140 (137-145) mmol/L Potassium 2.8 L (3.4-5.1) mmol/L Chloride 105 (98-107) mmol/L Carbon Dioxide 20 L (22-32) mmol/L BUN 19 (9-20) mg/dL Creatinine 1.07 (0.66-1.25) mg/dL Estimated GFR > 60 (>60) mL/min BUN/Creatinine Ratio 17.8 (6-22) Glucose 179 H (70-99) mg/dL Calcium 10.0 (8.4-10.2) mg/dL Magnesium (1.6-2.3) mg/dL Total Bilirubin 2.0 H (0.2-1.3) mg/dL AST 39 (17-59) IU/L ALT 31 (<50) IU/L Alkaline Phosphatase 107 (38-126) U/L Total Creatine Kinase 118 (55-170) U/L Troponin I 0.018 (0.01-0.034) ng/mL Total Protein 8.6 H (6.3-8.2) g/dL Albumin 4.6 (3.5-5.0) g/dL Globulin 4.0 (1.7-4.1) g/dL Albumin/Globulin Ratio 1.2 (1.0-2.8) Lipase 124 (23-300) U/L Urine RBC None seen (0-5/HPF) Urine WBC None seen (0-5/HPF) Ur Squamous Epith Cells None seen (0-5/HPF) Urine Bacteria None seen (None) Ur Culture Indicated? Cult not indicated Vol Urine Centrifuged 10ml (spun) SARS-CoV-2 (PCR) Negative (Negative) Influenza A (RT-PCR) Flu a negative (NEGATIVE) Influenza B (RT-PCR) Flu b negative (NEGATIVE) RSV (PCR) Negative (Negative) 03/01/25 Range/Units 15:03 WBC (4.5-11.0) X10^3/uL RBC (4.5-5.9) X10^6/uL Hgb (13.5-17.5) g/dL Hct (41-53) % MCV (80-100) fL MCH (26-34) PG MCHC (30-36) % RDW (11.6-14.8) % Plt Count (150-400) X10^3/uL Neut % (Auto) (50-75) % Lymph % (Auto) (25-40) % Mcminn % (Auto) (3-14) % Eos % (Auto) (2-4) % Baso % (Auto) (0-2) % Neut # (Auto) (9231-9092) /uL Lymph # (Auto) (9133-5038) /uL Mcminn # (Auto) (0-900) /uL Eos # (Auto) (0-450) /uL Baso # (Auto) (0-100) /uL Sodium (137-145) mmol/L Potassium (3.4-5.1) mmol/L Chloride (98-107) mmol/L Carbon Dioxide (22-32) mmol/L BUN (9-20) mg/dL Creatinine (0.66-1.25) mg/dL Estimated GFR (>60) mL/min BUN/Creatinine Ratio (6-22) Glucose (70-99) mg/dL Calcium (8.4-10.2) mg/dL Magnesium 1.8 (1.6-2.3) mg/dL Total Bilirubin (0.2-1.3) mg/dL AST (17-59) IU/L ALT (<50) IU/L Alkaline Phosphatase (38-126) U/L Total Creatine Kinase (55-170) U/L Troponin I 0.024 (0.01-0.034) ng/mL Total Protein (6.3-8.2) g/dL Albumin (3.5-5.0) g/dL Globulin (1.7-4.1) g/dL Albumin/Globulin Ratio (1.0-2.8) Lipase (23-300) U/L Urine RBC (0-5/HPF) Urine WBC (0-5/HPF) Ur Squamous Epith Cells (0-5/HPF) Urine Bacteria (None) Ur Culture Indicated? Vol Urine Centrifuged SARS-CoV-2 (PCR) (Negative) Influenza A (RT-PCR) (NEGATIVE) Influenza B (RT-PCR) (NEGATIVE) RSV (PCR) (Negative) Urine Dip Bedside Urine Glucose Negative Bedside Urine Bilirubin - Negative Bedside Urine Ketone ++ 40 Urine Specific [place] 1.010 Bedside Urine Occult Blood - Negative Bedside Urine pH 8 Bedside Urine Protein +/- 15 Bedside Urine Urobilinogen - Negative Bedside Urine Nitrite - Negative Bedside Urine Leukocytes - Negative Esterase Imaging Data Chest x-ray: Radiologist's Impression: PROCEDURE: XR CHEST 1V INDICATIONS: N/V TECHNIQUE: One view of the chest was acquired. COMPARISON: [facility] [facility], CR, XR CHEST 1V, 08/16/2024, 12:20. FINDINGS: Surgical changes and devices: None. Lungs and pleura: Lungs are clear. No pleural effusions or pneumothorax. Mediastinum: Mediastinal contours appear normal. Heart size is enlarged. Bones and chest wall: No suspicious bony lesions. Overlying soft tissues appear unremarkable. IMPRESSION: No acute cardiopulmonary pathology. Dictated by: Taj Dominguez M.D. on 03/01/2025 at 14:16 Approved by: Taj Dominguez M.D. on 03/01/2025 at 14:16 CT scan - head: Radiologist's Impression: PROCEDURE: CT HEAD/BRAIN WO CON INDICATIONS: Vomiting, hypertension, pituitary tumor TECHNIQUE: Noncontrast 4.5 mm thick angled axial sections acquired from the foramen magnum to the vertex, with coronal and sagittal reformats. For radiation dose reduction, the following was used: automated exposure control, adjustment of mA and/or kV according to patient size. COMPARISON: [facility], CT, CT ABDOMEN PELVIS W CON, 03/01/2025, 14:13. FINDINGS: Image quality: Streak artifact can be seen through the skull base. CSF spaces: Basal cisterns are patent. No extra-axial fluid collections. The ventricles are symmetric in size and shape. Brain: No intracranial bleeds or mass effect. There is cerebral volume loss, with resultant ventricular and sulcal prominence. There are periventricular and deep white matter chronic small vessel ischemic changes. There is intracranial internal carotid artery atherosclerosis. Skull and face: Calvarium and visualized facial bones appear intact, without suspicious lesions. Sinuses: Visualized sinuses and mastoids are clear. IMPRESSION: No acute intracranial pathology. To the limits of this noncontrast study, no findings of intracranial masses or mass effect can be seen. Dictated by: Maico Cleveland M.D. on 03/01/2025 at 13:37 Approved by: Maico Cleveland M.D. on 03/01/2025 at 13:38 CT scan - abdomen/pelvis: Radiologist's Impression: PROCEDURE: CT ABDOMEN PELVIS W CON INDICATIONS: N/V/D; nonfocal pain TECHNIQUE: After the administration of intravenous contrast, axial sections acquired from the lung bases to the pubic symphysis. Coronal and sagittal reformats were performed. For radiation dose reduction, the following was used: automated exposure control, adjustment of mA and/or kV according to patient size. COMPARISON: [facility], CT, CT HEAD/BRAIN WO CON, 03/01/2025, 14:13. [facility], CR, XR CHEST 1V, 03/01/2025, 13:28. FINDINGS: Image quality: Diagnostic. Lower Chest: Incidental note is made of bilateral gynecomastia. ABDOMEN: Liver: No solid mass. Gallbladder: Removed. Biliary ducts: Moderate intrahepatic biliary ductal dilatation is seen, particularly on the left side. The common bile duct measures 8 mm. Within the left liver, there is a water density nonenhancing cyst seen that measures 3.6 cm. Pancreas: No ductal dilation. Spleen: Size is within normal limits. Adrenal Glands: No adrenal nodules. Kidneys and Ureters: No hydronephrosis. No solid mass. No complex renal cystic lesion which requires follow up. Stomach and Bowel: Moderate generalized colonic wall thickening is seen. No dilated loops of small bowel are seen. Peritoneum: No abnormal intraperitoneal fluid. No free air. Ventral Wall: No significant ventral hernia. Abdominal Nodes: No retroperitoneal or mesenteric adenopathy by size criteria. Vessels: Aorta and inferior vena cava are normal in size. Atherosclerotic calcification is noted. PELVIS: Pelvic Organs: Unremarkable. Bladder: No bladder wall thickening, accounting for underdistention. Pelvic Nodes: No enlarged lymph nodes. Miscellaneous: Bilateral fat containing inguinal hernias are seen, left larger than right. Bones: No aggressive osseous abnormality. Age-appropriate bony degenerative changes are seen. IMPRESSION: Intrahepatic biliary ductal dilatation is seen, which is worse than would be expected for a patient of this age with prior cholecystectomy. Although no mass is seen, differential diagnosis includes underlying neoplasm. - For further evaluation, please consider a dedicated liver protocol MRI without and with Eovist IV contrast (assuming that there is no contraindication to MRI). Moderate generalized colonic wall thickening can be seen. Please correlate with potential infectious and inflammatory causes of colitis. No findings of perforation or abscess can be seen. Additional findings: Gynecomastia Simple left liver cyst Cholecystectomy Bilateral fat containing inguinal hernias Dictated by: Maico Cleveland M.D. on 03/01/2025 at 13:41 Approved by: Maico Cleveland M.D. on 03/01/2025 at 13:45 Abdomen US: Radiologist's Impression: PROCEDURE: US ABDOMEN LIMITED INDICATIONS: N/V; CT with intrahepatic duct dilatation, unable to get MR TECHNIQUE: Real-time focused scanning was performed of the abdomen, with image documentation. COMPARISON: [facility], CT, CT ABDOMEN PELVIS W CON, 03/01/2025, 14:13. FINDINGS: Liver measures 14 cm. Overall increased echogenicity. Scattered cysts, largest measuring 4 cm in the left lobe. Gallbladder is absent. The CBD is nondilated on ultrasound measuring 5 mm. Intrahepatic biliary ductal dilation again seen. IMPRESSION: Intrahepatic biliary ductal dilation again seen, without significant CBD dilation. No discrete etiology identified on limited abdominal ultrasound. Increased hepatic echogenicity, nonspecific, most commonly steatosis. Dictated by: Lloyd Lopez M.D. on 03/01/2025 at 19:11 Approved by: Lloyd Lopez M.D. on 03/01/2025 at 19:13 [facility] Narrative Medical decision making narrative: 74-year-old male with a past medical history of schizophrenia, hypertension, GERD, Schatzki's ring, pituitary tumor who presents to the emergency department for nausea, vomiting, diarrhea x 2 days. Differential diagnosis includes but is not limited to gastroenteritis, gastritis, obstruction, viral syndrome, electrolyte abnormality, UTI, medication adverse reaction, medication withdrawal, etc. On exam the patient is nontoxic appearing, in no acute distress, but he does intermittently have significant tremors and he does admit to feeling quite anxious. Majority of history was provided by his POA/sister via face time. Patient is able to answer his own direct questions. For the last 2 days he has been vomiting, patient also says that he has been having some diarrhea and therefore unable to keep down all of his normal medications. His tremors have been worsening. He denies any focal pain however initial blood pressure was quite elevated and given inability to tolerate p.o., we will obtain imaging of CT head and CT abdomen pelvis. We will check abdominal labs and troponin, EKG, chest x-ray, viral swab. We will treat with fluids, Zofran, Protonix, we will also treat with home dose of benztropine once he is able to tolerate p.o. Labs reveal normal WBC count 7.0. Hemoglobin 14.5 hematocrit 39.6. Sodium normal 140, potassium is low at 2.8. BUN 19 creatinine 1.07 which appears to be baseline for patient. Glucose elevated 179. Troponin is slightly elevated at 0.018, however this is consistent with prior troponins, no chest pain. Normal lipase 124. Chest x-ray reveals no acute cardiopulmonary pathology. Head CT reveals no acute intracranial pathology. CT abdomen pelvis reveals intrahepatic biliary ductal dilatation, which is worse than what would be expected for patient of this age with prior cholecystectomy. Although no masses seen, differential diagnosis includes underlying neoplasm. There is moderate generalized colonic wall thickening. Repeat abdominal exam is benign, patient has no right upper quadrant tenderness. He is feeling much better, tremors have resolved, he is more talkative, and has had no vomiting. Family left at this time, we will proceed to reach out with his POA to discuss potential monitoring versus MRCP. Spoke with sister, Ciarra, POA, to discuss discharge versus potential MRCP. Patient's gallbladder was removed over 20 years ago. After shared decision-making, she is interested in proceeding with the MRCP. Radiologist and operating room surgical technician brought up that patient has what appears to be aortic valve replacement, we will need card to confirm if this fell is MRI compatible. Patient denies history of any valve repairs, sister also denies this, she is unaware of any implantable devices artificial valves, she does not have a card for any equipment. 1655: Informed by nursing staff of a possible syncopal episode, patient responded to sternal rub. There was no loss of pulse. Discussed case with hospitalist Dr. Pugh who recommended consultation with a GI. Discussed with GI at [facility], Dr. Waggoner, who recommends right upper quadrant ultrasound, trending LFTs. Pt can f/u outpt GI unless US very concerning, then can call back. Right upper quadrant ultrasound reveals intrahepatic biliary ductal dilatation again seen, without significant CBD dilatation. No discrete etiology identified on limited abdominal ultrasound. Increased hepatic echogenicity, nonspecific, most commonly steatosis. Pt having no RUQ abd pain. Due to accumulation of the patient's lab work, imaging, physical exam and history I do believe he is appropriate for admission to this hospital for observation, trending LFTs, monitoring electrolytes, and nausea control. We will consult nighttime hospitalist. 1950: Spoke with nighttime hospitalist Dr. Leon, who agrees to admit patient to observation. We will order 40 mEq oral potassium as discussed. Patient aware and agreeable to admission. <Olive Wilde, - Last Filed: 03/11/25 19:38> Lab Data Labs: Lab Results 03/01/25 03/01/25 03/01/25 Range/Units 13:15 13:52 14:36 WBC 7.0 (4.5-11.0) X10^3/uL RBC 4.61 (4.5-5.9) X10^6/uL Hgb 14.5 (13.5-17.5) g/dL Hct 39.6 L (41-53) % MCV 86.0 (80-100) fL MCH 31.5 (26-34) PG MCHC 36.6 H (30-36) % RDW 14.0 (11.6-14.8) % Plt Count 223 (150-400) X10^3/uL Neut % (Auto) 76.8 H (50-75) % Lymph % (Auto) 16.4 L (25-40) % Mcminn % (Auto) 6.4 (3-14) % Eos % (Auto) 0.2 L (2-4) % Baso % (Auto) 0.2 (0-2) % Neut # (Auto) 5300 (4386-1253) /uL Lymph # (Auto) 1100 (3908-8006) /uL Mcminn # (Auto) 400 (0-900) /uL Eos # (Auto) 0 (0-450) /uL Baso # (Auto) 0 (0-100) /uL Sodium 140 (137-145) mmol/L Potassium 2.8 L (3.4-5.1) mmol/L Chloride 105 (98-107) mmol/L Carbon Dioxide 20 L (22-32) mmol/L BUN 19 (9-20) mg/dL Creatinine 1.07 (0.66-1.25) mg/dL Estimated GFR > 60 (>60) mL/min BUN/Creatinine Ratio 17.8 (6-22) Glucose 179 H (70-99) mg/dL Calcium 10.0 (8.4-10.2) mg/dL Magnesium (1.6-2.3) mg/dL Total Bilirubin 2.0 H (0.2-1.3) mg/dL AST 39 (17-59) IU/L ALT 31 (<50) IU/L Alkaline Phosphatase 107 (38-126) U/L Total Creatine Kinase 118 (55-170) U/L Troponin I 0.018 (0.01-0.034) ng/mL Total Protein 8.6 H (6.3-8.2) g/dL Albumin 4.6 (3.5-5.0) g/dL Globulin 4.0 (1.7-4.1) g/dL Albumin/Globulin Ratio 1.2 (1.0-2.8) Lipase 124 (23-300) U/L Urine RBC None seen (0-5/HPF) Urine WBC None seen (0-5/HPF) Ur Squamous Epith Cells None seen (0-5/HPF) Urine Bacteria None seen (None) Ur Culture Indicated? Cult not indicated Vol Urine Centrifuged 10ml (spun) SARS-CoV-2 (PCR) Negative (Negative) Influenza A (RT-PCR) Flu a negative (NEGATIVE) Influenza B (RT-PCR) Flu b negative (NEGATIVE) RSV (PCR) Negative (Negative) 03/01/25 Range/Units 15:03 WBC (4.5-11.0) X10^3/uL RBC (4.5-5.9) X10^6/uL Hgb (13.5-17.5) g/dL Hct (41-53) % MCV (80-100) fL MCH (26-34) PG MCHC (30-36) % RDW (11.6-14.8) % Plt Count (150-400) X10^3/uL Neut % (Auto) (50-75) % Lymph % (Auto) (25-40) % Mcminn % (Auto) (3-14) % Eos % (Auto) (2-4) % Baso % (Auto) (0-2) % Neut # (Auto) (3574-9496) /uL Lymph # (Auto) (6787-6070) /uL Mcminn # (Auto) (0-900) /uL Eos # (Auto) (0-450) /uL Baso # (Auto) (0-100) /uL Sodium (137-145) mmol/L Potassium (3.4-5.1) mmol/L Chloride (98-107) mmol/L Carbon Dioxide (22-32) mmol/L BUN (9-20) mg/dL Creatinine (0.66-1.25) mg/dL Estimated GFR (>60) mL/min BUN/Creatinine Ratio (6-22) Glucose (70-99) mg/dL Calcium (8.4-10.2) mg/dL Magnesium 1.8 (1.6-2.3) mg/dL Total Bilirubin (0.2-1.3) mg/dL AST (17-59) IU/L ALT (<50) IU/L Alkaline Phosphatase (38-126) U/L Total Creatine Kinase (55-170) U/L Troponin I 0.024 (0.01-0.034) ng/mL Total Protein (6.3-8.2) g/dL Albumin (3.5-5.0) g/dL Globulin (1.7-4.1) g/dL Albumin/Globulin Ratio (1.0-2.8) Lipase (23-300) U/L Urine RBC (0-5/HPF) Urine WBC (0-5/HPF) Ur Squamous Epith Cells (0-5/HPF) Urine Bacteria (None) Ur Culture Indicated? Vol Urine Centrifuged SARS-CoV-2 (PCR) (Negative) Influenza A (RT-PCR) (NEGATIVE) Influenza B (RT-PCR) (NEGATIVE) RSV (PCR) (Negative) Urine Dip Bedside Urine Glucose Negative Bedside Urine Bilirubin - Negative Bedside Urine Ketone ++ 40 Urine Specific [place] 1.010 Bedside Urine Occult Blood - Negative Bedside Urine pH 8 Bedside Urine Protein +/- 15 Bedside Urine Urobilinogen - Negative Bedside Urine Nitrite - Negative Bedside Urine Leukocytes - Negative Esterase ECG Data Attestation: I personally reviewed and interpreted this ECG as follows: Interpretation: Sinus rhythm rate of 72 OH 170 QRS of 108 QTC 459, patient has T-wave inversion depression in V3 through V6. Patient was prior from 08/16/2024 which shows similar changes no other acute ST elevation or dynamic changes from prior on July of 2024. [facility] Narrative Medical decision making narrative: 74-year-old male with a past medical history of schizophrenia, hypertension, GERD, Schatzki's ring, pituitary tumor who presents to the emergency department for nausea, vomiting, diarrhea x 2 days. Differential diagnosis includes but is not limited to gastroenteritis, gastritis, obstruction, viral syndrome, electrolyte abnormality, UTI, medication adverse reaction, medication withdrawal, etc. On exam the patient is nontoxic appearing, in no acute distress, but he does intermittently have significant tremors and he does admit to feeling quite anxious. Majority of history was provided by his POA/sister via face time. Patient is able to answer his own direct questions. For the last 2 days he has been vomiting, patient also says that he has been having some diarrhea and therefore unable to keep down all of his normal medications. His tremors have been worsening. He denies any focal pain however initial blood pressure was quite elevated and given inability to tolerate p.o., we will obtain imaging of CT head and CT abdomen pelvis. We will check abdominal labs and troponin, EKG, chest x-ray, viral swab. We will treat with fluids, Zofran, Protonix, we will also treat with home dose of benztropine once he is able to tolerate p.o. Labs reveal normal WBC count 7.0. Hemoglobin 14.5 hematocrit 39.6. Sodium normal 140, potassium is low at 2.8. BUN 19 creatinine 1.07 which appears to be baseline for patient. Glucose elevated 179. Troponin is slightly elevated at 0.018, however this is consistent with prior troponins, no chest pain. Normal lipase 124. Chest x-ray reveals no acute cardiopulmonary pathology. Head CT reveals no acute intracranial pathology. CT abdomen pelvis reveals intrahepatic biliary ductal dilatation, which is worse than what would be expected for patient of this age with prior cholecystectomy. Although no masses seen, differential diagnosis includes underlying neoplasm. There is moderate generalized colonic wall thickening. Repeat abdominal exam is benign, patient has no right upper quadrant tenderness. He is feeling much better, tremors have resolved, he is more talkative, and has had no vomiting. Family left at this time, we will proceed to reach out with his POA to discuss potential monitoring versus MRCP. Spoke with sister, Ciarra, POA, to discuss discharge versus potential MRCP. Patient's gallbladder was removed over 20 years ago. After shared decision-making, she is interested in proceeding with the MRCP. Radiologist and operating room surgical technician brought up that patient has what appears to be aortic valve replacement, we will need card to confirm if this fell is MRI compatible. Patient denies history of any valve repairs, sister also denies this, she is unaware of any implantable devices artificial valves, she does not have a card for any equipment. 1655: Informed by nursing staff of a possible syncopal episode, patient responded to sternal rub. There was no loss of pulse. Discussed case with hospitalist Dr. Pugh who recommended consultation with a GI. Discussed with GI at [facility], Dr. Waggoner, who recommends right upper quadrant ultrasound, trending LFTs. Pt can f/u outpt GI unless US very concerning, then can call back. Right upper quadrant ultrasound reveals intrahepatic biliary ductal dilatation again seen, without significant CBD dilatation. No discrete etiology identified on limited abdominal ultrasound. Increased hepatic echogenicity, nonspecific, most commonly steatosis. Pt having no RUQ abd pain. Due to accumulation of the patient's lab work, imaging, physical exam and history I do believe he is appropriate for admission to this hospital for observation, trending LFTs, monitoring electrolytes, and nausea control. We will consult nighttime hospitalist. 1950: Spoke with nighttime hospitalist Dr. Messina, who agrees to admit patient to observation. We will order 40 mEq oral potassium as discussed. Patient aware and agreeable to admission. Discharge Plan Departure Patient Disposition: Admitted as Observation Clinical Impression: Acute hypokalemia, Total bilirubin, elevated, Colitis, Dilated intrahepatic bile duct Nausea & vomiting Qualifiers: Vomiting type: unspecified Qualified Code(s): R11.2 - Nausea with vomiting, unspecified Admit Date/Time: 03/01/25 19:54 Admit Provider: Amy Messina ED Sign-out <Olive Wilde DO - Last Filed: 03/11/25 19:38> Cosign ED Attending Cosignature Attestation: Patient case discussed with myself reviewed, imaging and workup was reviewed as well, discussed with hospitalist who asked for GI consultation. Recommendations were appreciated these were obtained in patient was admitted for observation.
--- NOTE | 2025-03-01 13:36 | EKG_ITS ---
[address] [address] Test Date: 2025-03-01 Pat Name: Hay Day Department: [facility] Room: Gender: Male Proration Clerk: BJ : 1950 Requested By: Order Number: [id number] Reading MD: Real Harmon MD Measurements Intervals [place] Rate: 72 P: -5 NC: 170 QRS: 23 QRSD: 108 T: 213 QT: 420 QTc: 459 Interpretive Statements Normal sinus rhythm Left ventricular hypertrophy with repolarization abnormality ( Sokolow-Rivas , [place] product ) Electronically Signed On 03-04-2025 11:53:02 PDT by Real Harmon MD
[2025-03-01 13:41] LABS: Add Manual Diff / Slide Review NO; Basophils Absolute Auto 0 /uL (0-100); Basophils Percent Auto 0.2 % (0-2); Eosinophils Absolute Auto 0 /uL (0-450); Eosinophils Percent Auto 0.2 % (2-4); Hematocrit 39.6 % (41-53); Hemoglobin 14.5 g/dL (13.5-17.5); Lymphocytes Absolute Auto 1100 /uL (1100-4500); Lymphocytes Percent Auto 16.4 % (25-40); Mean Corpuscular HGB Conc 36.6 % (30-36); Mean Corpuscular Hemoglobin 31.5 PG (26-34); Monocytes Absolute Auto 400 /uL (0-900); Monocytes Percent Auto 6.4 % (3-14); Neutrophils Absolute Auto 5300 /uL (1500-7000); Neutrophils Percent Auto 76.8 % (50-75); Platelet Count 223 X10^3/uL (150-400); Red Blood Cell Count 4.61 X10^6/uL (4.5-5.9)
[2025-03-01] MEDS: PANTOPRAZOLE 40 MG VIAL IV (13:42)
[2025-03-01] MEDS: SODIUM CHLORIDE 0.9% 1,000 ML 1000 ML IV (13:42)
[2025-03-01] MEDS: ONDANSETRON 4 MG/2 ML INJ IV ×2 (13:42→16:35)
[2025-03-01 13:46] LABS: Creatine Kinase 118 U/L (55-170); Lipase 124 U/L (23-300)
[2025-03-01 13:48] LABS: Alanine Aminotransferase 31 IU/L (<50); Albumin 4.6 g/dL (3.5-5.0); Albumin Globulin Ratio 1.2 (1.0-2.8); Alkaline Phosphatase 107 U/L (38-126); Aspartate Aminotransferase 39 IU/L (17-59); BUN Creatinine Ratio 17.8 (6-22); Blood Urea Nitrogen 19 mg/dL (9-20); Carbon Dioxide 20 mmol/L (22-32); Chloride 105 mmol/L (98-107); Estimated Glomerular Filt Rate > 60 mL/min (>60); Glucose 179 mg/dL (70-99); HEMOLYSIS 27 (0-50); Potassium 2.8 mmol/L (3.4-5.1); Sodium 140 mmol/L (137-145); Total Protein 8.6 g/dL (6.3-8.2)
[2025-03-01 13:58] LABS: Troponin I 0.018 ng/mL (0.01-0.034)
[2025-03-01] MEDS: BENZTROPINE 1 MG TABLET 2 MG PO (14:23)
[2025-03-01] MEDS: POTASSIUM CHLORIDE IN WATER 10 MEQ/100 ML PIGGYBACK 100 MEQ IV ×4 (14:25→17:36)
[2025-03-01 14:52] LABS: COVID-19 CEPHEID 4-PLEX PCR Negative (Negative); Influenza A - CEPHEID Flu A NEGATIVE (NEGATIVE); Influenza B - CEPHEID Flu B NEGATIVE (NEGATIVE); Respiratory Syncytial Virus Negative (Negative)
[2025-03-01 15:04] LABS: Bacteria Urine None Seen; Culture Indicated Urine Cult Not Indicated; RBC Urine None Seen (0-5/HPF); Squamous Epithelial Cell Urine None Seen (0-5/HPF); Urine Volume 10mL (spun); WBC Urine None Seen (0-5/HPF)
[2025-03-01 15:39] LABS: Troponin I 0.024 ng/mL (0.01-0.034)
--- NOTE | 2025-03-01 16:19 | EKG_ITS ---
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
[2025-03-01 17:28] LABS: Magnesium 1.8 mg/dL (1.6-2.3)
--- NOTE | 2025-03-01 18:04 | DI.US.S_ITS ---
PROCEDURE: US ABDOMEN LIMITED INDICATIONS: N/V; CT with intrahepatic duct dilatation, unable to get MR TECHNIQUE: Real-time focused scanning was performed of the abdomen, with image documentation. COMPARISON: [facility], CT, CT ABDOMEN PELVIS W CON, 03/01/2025, 14:13. FINDINGS: Liver measures 14 cm. Overall increased echogenicity. Scattered cysts, largest measuring 4 cm in the left lobe. Gallbladder is absent. The CBD is nondilated on ultrasound measuring 5 mm. Intrahepatic biliary ductal dilation again seen. IMPRESSION: Intrahepatic biliary ductal dilation again seen, without significant CBD dilation. No discrete etiology identified on limited abdominal ultrasound. Increased hepatic echogenicity, nonspecific, most commonly steatosis. Dictated by: Lloyd Lopez M.D. on 03/01/2025 at 19:11 Approved by: Lloyd Lopez M.D. on 03/01/2025 at 19:13
[2025-03-01] MEDS: POTASSIUM CHLORIDE 20 MEQ/15 ML UDC 40 MEQ PO (20:10)
--- NOTE | 2025-03-01 21:13 | PC.NURSE ---
Around 1600 the nurse entered in the room and the patient was sleeping. His monitor showed 95% and was dropping to 93%. The nurse attempted to wake the patient with subtle stimulation to which the patient was not responding to. The nurse escalated to loudly shouting the pt name. The nurse checked pulse. Regular rhythm and rate in the 60s. The monitor showed 93% o2 saturation. The patient's chest rise and fall was equal and unlabored. The nurse escalated to sternal rub and no response. This was alarming since the patient had been alert and oriented at baseline and not somnolent during any of the previous interactions just moments prior. The nurse alerted the provider. Provider responded immediately. Radial pulse was checked again with no change from before. The provider and another nurse attempted to wake with patient. Positive sternal rub caused the patient to regain alertness. The patient stated that he did not know what happened. Patient's 02 returned to 98% on RA. The patient was fearful and upset about the sternal rub but was not in distress for longer than a short moment.
[2025-03-02 02:50] VITALS: BP 123/56; PULSE 70; RESP 16; TEMP 36.3; O2SAT 95
[2025-03-02] MEDS: SODIUM CHLORIDE 0.9% 1,000 ML 100 ML IV ×3 (03:06→23:15)
[2025-03-02] MEDS: PANTOPRAZOLE DR 20 MG TABLET PO ×2 (07:26→20:51)
[2025-03-02 08:00] VITALS: BP 124/71; PULSE 76; RESP 18; TEMP 36.4; O2SAT 99
--- NOTE | 2025-03-02 08:20 | CM.DANOTE ---
Initial DCP Assessment Visit Note Reviewed EMR and team rounds for pt's medical status and updates. Met with pt at bedside to introduce self and role, pt was found to be alert/oriented, able to share that he was still not feeling well, but was trying to eat his breakfast at the time of this visit. Pt resides modified independently with his sister/DPOA here in [place]. He also has a very supportive, involved brother who was with him in the ED. Either his brother or sister will tranport him back home once he's medically cleared for d/c, likely 03/03. No CM d/c assistance needs are anticipated at this time. Payor: [employer] [facility] PCP: Dr. Sims Pt is a 74 year-old M with a hx of schizophrenia, HTN, GERD, Schatzki's ring, and pituitary tumor. He presented to the ED last evening with c/o nausea/vomiting/diarrhea for the last 2-days, and that he was unable to keep down any food/fluids. All other ED imaging and labs were unremarkable. Plan was made to admit to OBS for IV fluids and electrolyte replacement. DCP will continue to follow for any further CM d/c assistance/resource needs. 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 No History Provided By Patient,Medical Record Prior Living Apartment/Condo Arrangements Household Members family Type of Relies on Others transporation used prior to admit Independent with ADL No: modified independent 's Is patient alert and Yes oriented? Needs Assistance Home Chores / Shopping With Comment Home w/family. Family to transport Discharge Plan Home Transportation Family Arrangement Referrals Initiated None needed Additional Comment Following closely in case any DC needs or concerns arise Whiteboard Updated Yes in Patient Room with name and ext. # of Academic Manager Review Status In Process Please Provide Date 03/02/25 Initial DC Assessment Was Performed
[2025-03-02] MEDS: ENOXAPARIN 40 MG/0.4 ML SYRINGE SUBCUT (08:38)
[2025-03-02 08:39] VITALS: BP 124/71; PULSE 76
[2025-03-02] MEDS: ASPIRIN EC 325 MG TABLET PO (08:39)
[2025-03-02] MEDS: LOSARTAN 50 MG TABLET PO (08:39)
[2025-03-02] MEDS: BENZTROPINE 1 MG TABLET 2 MG PO ×2 (08:39→20:52)
[2025-03-02] MEDS: hydroCHLOROthiazide 25 MG TABLET PO (08:40)
[2025-03-02 09:41] LABS: Blood Urea Nitrogen 20 mg/dL (9-20); Carbon Dioxide 22 mmol/L (22-32); Chloride 108 mmol/L (98-107); Estimated Glomerular Filt Rate 57 mL/min (>60); Glucose 172 mg/dL (70-99); HEMOLYSIS < 15 (0-50); Potassium 3.1 mmol/L (3.4-5.1); Sodium 140 mmol/L (137-145)
[2025-03-02 09:53] LABS: Troponin I 0.033 ng/mL (0.01-0.034)
[2025-03-02 09:59] LABS: Add Manual Diff / Slide Review NO; Basophils Absolute Auto 0 /uL (0-100); Basophils Percent Auto 0.4 % (0-2); Eosinophils Absolute Auto 0 /uL (0-450); Eosinophils Percent Auto 0.4 % (2-4); Hematocrit 35.9 % (41-53); Hemoglobin 12.8 g/dL (13.5-17.5); Lymphocytes Absolute Auto 1500 /uL (1100-4500); Lymphocytes Percent Auto 26.8 % (25-40); Mean Corpuscular HGB Conc 35.6 % (30-36); Mean Corpuscular Hemoglobin 31.2 PG (26-34); Mean Corpuscular Volume 87.6 fL (80-100); Monocytes Absolute Auto 500 /uL (0-900); Neutrophils Absolute Auto 3600 /uL (1500-7000); Neutrophils Percent Auto 63.4 % (50-75); Platelet Count 188 X10^3/uL (150-400); Red Cell Distribution Width 14.4 % (11.6-14.8); White Blood Cell Count 5.6 X10^3/uL (4.5-11.0)
[2025-03-02] MEDS: POTASSIUM CHLORIDE 20 MEQ TAB 40 MEQ PO ×2 (11:23→16:53)
[2025-03-02 12:00] VITALS: RESP 20
--- NOTE | 2025-03-02 13:06 | PM.HP.IH.1 ---
History of Present Illness History of Present Illness Date Patient Seen: 03/02/25 Chief complaint: nauseas dry heaving sent by pcp Narrative: Pt is a 74yo man with schizophrenia, HTN, GERD, Schatzki's ring, and pituitary tumor who presented with nausea and vomiting. The pt reports that for approximately 2 days prior to presentation he had acute onset of nausea, recurrent vomiting, and diarrhea. He was not able to keep down any food, and minimal fluids. He states that he had very mild lower abdominal pain. The vomiting and diarrhea were both nonbloody. The pt denies any fevers, chills, chest pain, SOB. He denies any new foods or recent sick contacts. He was feeling well prior to 2 days ago. In the ER, the pt was given a 1L NS bolus and zofran, with significant improvement in his symptoms. Lab worked revealed significant hypokalemia, that was repleted with IV and then PO potassium. Abdominal CT revealed intrahepatic biliary ductal dilation and general colonic wall thickening suggestive of colitis. [facility] GI was consulted, and recommend RUQ abdominal u/s to eval for potential mass effect. U/S showed intrahepatic biliary ductal dilation without CBD dilation, without discrete etiology seen. Pt will need outpatient GI f/u. This morning, the pt reports that he is feeling well. He denies any abdominal pain. He has not had any nausea, vomiting, or diarrhea since admission. He was able to eat breakfast without any difficulty. [facility] Medical History Schatzki's ring Hypogonadism in male 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 leisure activities: art (Pictures.) and other (TV, Yardwork.) Smoking Status: Former smoker Tobacco: How many years used: 0 quit status: quit date established (Never Started) second hand exposure: No alcohol intake: current substance use type: does not use Meds Home Medications and Allergies Home Medications ?Medication ?Instructions ?Recorded ?Confirmed ?Type aspirin 325 mg tablet,delayed 325 mg PO QDAY ##0 08/03/16 01/17/25 History release triamterene 37.5 1 tab PO QDAY #90 tabs 12/27/19 01/17/25 Rx mg-hydrochlorothiazide 25 mg tablet omeprazole 20 mg capsule,delayed 20 mg PO BID #60 caps 10/04/22 03/01/25 Rx release benztropine 2 mg tablet 2 mg PO BID 06/27/23 03/01/25 History testosterone 1 pump topical DAILY 06/27/23 01/17/25 History trifluoperazine 10 mg tablet 10 mg PO ONCE PM 06/27/23 03/01/25 History hydrochlorothiazide 25 mg tablet 25 mg PO DAILY 01/17/25 03/01/25 History losartan 50 mg tablet 50 mg PO DAILY 01/17/25 03/01/25 History rosuvastatin 10 mg tablet 10 mg PO ONCE PM 01/17/25 03/01/25 History Allergies Allergy/AdvReac Type Severity Reaction Status Date / Time codeine (CODEINE) Allergy Unknown Verified 03/01/25 12:48 meperidine (MEPERIDINE) Allergy Unknown Verified 03/01/25 12:48 Penicillins (PENICILLINS) Allergy Unknown Verified 03/01/25 12:48 prochlorperazine Allergy Unknown Verified 03/01/25 12:48 (PROCHLORPERAZINE) Exam Vital Signs (past 8 hours): - 03/02/25 08:00 03/02/25 08:39 Temperature 97.5 F L Pulse Rate 76 76 Respiratory Rate 18 Blood Pressure 124/71 124/71 Pulse Oximetry 99 Oxygen Flow Rate 0 Oxygen Delivery Method Room Air Oxygen Flow Rate 0 Narrative Exam Narrative: Gen: NAD, sitting comfortably in bed eating breakfast, appears well HEENT: normocephalic, atraumatic, sclera clear Neck: no LAD CV: RRR, grade 3/6 systolic murmur Resp: clear to auscultation bilaterally, no wheezes or crackles Abd: soft, nontender, nondistended, normoactive bowel sounds, no HSM, no masses Ext: no edema Neuro: no gross deficits Objective Labs 03/02/25 09:00 03/02/25 09:00 Labs: Laboratory Results - last 24 hr 03/01/25 03/01/25 03/01/25 13:15 13:52 14:36 WBC 7.0 RBC 4.61 Hgb 14.5 Hct 39.6 L MCV 86.0 MCH 31.5 MCHC 36.6 H RDW 14.0 Plt Count 223 Neut % (Auto) 76.8 H Lymph % (Auto) 16.4 L Rogers % (Auto) 6.4 Eos % (Auto) 0.2 L Baso % (Auto) 0.2 Neut # (Auto) 5300 Lymph # (Auto) 1100 Rogers # (Auto) 400 Eos # (Auto) 0 Baso # (Auto) 0 Sodium 140 Potassium 2.8 L Chloride 105 Carbon Dioxide 20 L BUN 19 Creatinine 1.07 Estimated GFR > 60 BUN/Creatinine Ratio 17.8 Glucose 179 H Calcium 10.0 Magnesium Total Bilirubin 2.0 H AST 39 ALT 31 Alkaline Phosphatase 107 Total Creatine Kinase 118 Troponin I 0.018 Total Protein 8.6 H Albumin 4.6 Globulin 4.0 Albumin/Globulin Ratio 1.2 Lipase 124 Urine RBC None seen Urine WBC None seen Ur Squamous Epith Cells None seen Urine Bacteria None seen Ur Culture Indicated? Cult not indicated Vol Urine Centrifuged 10ml (spun) SARS-CoV-2 (PCR) Negative Influenza A (RT-PCR) Flu a negative Influenza B (RT-PCR) Flu b negative RSV (PCR) Negative 03/01/25 03/02/25 15:03 09:00 WBC 5.6 RBC 4.10 L Hgb 12.8 L Hct 35.9 L MCV 87.6 MCH 31.2 MCHC 35.6 RDW 14.4 Plt Count 188 Neut % (Auto) 63.4 Lymph % (Auto) 26.8 Rogers % (Auto) 9.0 Eos % (Auto) 0.4 L Baso % (Auto) 0.4 Neut # (Auto) 3600 Lymph # (Auto) 1500 Rogers # (Auto) 500 Eos # (Auto) 0 Baso # (Auto) 0 Sodium 140 Potassium 3.1 L Chloride 108 H Carbon Dioxide 22 BUN 20 Creatinine 1.33 H Estimated GFR 57 L BUN/Creatinine Ratio 15.0 Glucose 172 H Calcium 9.0 Magnesium 1.8 Total Bilirubin AST ALT Alkaline Phosphatase Total Creatine Kinase Troponin I 0.024 0.033 Total Protein Albumin Globulin Albumin/Globulin Ratio Lipase Urine RBC Urine WBC Ur Squamous Epith Cells Urine Bacteria Ur Culture Indicated? Vol Urine Centrifuged SARS-CoV-2 (PCR) Influenza A (RT-PCR) Influenza B (RT-PCR) RSV (PCR) Assessment & Plan Assessment & Plan narrative: Pt is a 74yo man with schizophrenia, HTN, GERD, Schatzki's ring, and pituitary tumor who presented with nausea and vomiting. Pt was found to have ductal dilation on CT and u/s, without identifiable cause. 1) Nausea/vomiting: Potentially due to infectious colitis vs relationship with ductal dilation. Symptoms significantly improved/resolved - Zofran PRN - Continue to encourage PO intake 2) Biliary duct dilation: Unclear cause. Cannot complete MRCP at this time due to possible aortic valve replacement with unknown valve type. Pt not really symptomatic at this time. - Outpatient GI f/u 3) Hypokalemia: Repleated in the ED - Trend BMP, replete as needed 4) BAO: Creatinine surprisingly increased overnight. Unclear as to why. - Continue to trend out BMP - Continue mIVF 5) HTN: BP stable - Continue home HCTZ, Losartan, Rosuvastatin 6) Schizophrenia: Stable - Continue home Benztropine, Trifluoperazine 7) GERD: Stable - Continue home Omeprazole Diet: General Code: Full DVT ppx: Lovenox Dispo: Pending potassium stabilization Time-Based Coding :: [TOTAL MINUTES] spent with patient and on the chart (including review of chart, obtaining history, exam, reviewing outside data, placing orders, documenting exam and treatment plan, and counseling patient) on [DATE]. PROFEE [employer] Document charge(s): Yes Charge Codes Initial inpatient/observation care: [id number]
[2025-03-02 14:33] LABS: Blood Urea Nitrogen 19 mg/dL (9-20); Calcium 8.8 mg/dL (8.4-10.2); Carbon Dioxide 22 mmol/L (22-32); Chloride 107 mmol/L (98-107); Estimated Glomerular Filt Rate 55 mL/min (>60); Glucose 150 mg/dL (70-99); HEMOLYSIS < 15 (0-50); Potassium 3.2 mmol/L (3.4-5.1); Sodium 138 mmol/L (137-145)
--- NOTE | 2025-03-02 15:29 | DI.US.S_ITS ---
PROCEDURE: US RENAL COMPLETE INDICATIONS: elevated creatinine TECHNIQUE: Real-time scanning was performed of the kidneys and bladder, with image documentation. COMPARISON: None. FINDINGS: Kidneys: Kidneys are normal in size. Right kidney measures 11.2 cm long; left kidney measures 10.8 cm long. Right renal cortical thickness is 1.7 cm; left renal cortical thickness is 1.5 cm. Simple cyst is seen in mid pole right kidney measures 1.7 x 1.2 x 1.2 cm in size. A 7 mm simple cyst is also seen in midpole left kidney.. No hydronephrosis or nephrolithiasis. No suspicious solid mass lesions. Bladder: Urinary bladder is decompressed. No obvious abnormality is seen. Miscellaneous: No free pelvic fluid. IMPRESSION: 1. Simple appearing bilateral renal cysts. No solid appearing renal lesion. No nephrolithiasis or hydronephrosis. 2. No gross abnormality is seen in decompressed urinary bladder. Dictated by: Taj Dominguez M.D. on 03/02/2025 at 19:28 Approved by: Taj Dominguez M.D. on 03/02/2025 at 19:29
[2025-03-02 16:00] VITALS: BP 128/72; PULSE 75; RESP 16; TEMP 36.2; O2SAT 98
[2025-03-02 20:30] VITALS: BP 144/75; PULSE 68; RESP 16; TEMP 36.2; O2SAT 98
[2025-03-02] MEDS: ONDANSETRON 4 MG/2 ML INJ IV (20:51)
[2025-03-02] MEDS: ACETAMINOPHEN 325 MG TABLET 650 MG PO (20:51)
[2025-03-02] MEDS: ATORVASTATIN 20 MG TABLET PO (20:51)
[2025-03-03 01:13] VITALS: BP 127/79; PULSE 74; RESP 19; TEMP 36.1; O2SAT 95
[2025-03-03] MEDS: PANTOPRAZOLE DR 20 MG TABLET PO (06:23)
[2025-03-03 06:29] VITALS: BP 159/87; PULSE 69; RESP 17; TEMP 36.4; O2SAT 99
[2025-03-03 07:01] LABS: Alanine Aminotransferase 21 IU/L (<50); Albumin 3.5 g/dL (3.5-5.0); Albumin Globulin Ratio 1.1 (1.0-2.8); Alkaline Phosphatase 72 U/L (38-126); Aspartate Aminotransferase 29 IU/L (17-59); BUN Creatinine Ratio 15.6 (6-22); Blood Urea Nitrogen 17 mg/dL (9-20); Calcium 8.4 mg/dL (8.4-10.2); Carbon Dioxide 22 mmol/L (22-32); Chloride 110 mmol/L (98-107); Estimated Glomerular Filt Rate > 60 mL/min (>60); Globulin 3.2 g/dL (1.7-4.1); Glucose 125 mg/dL (70-99); HEMOLYSIS < 15 (0-50); Potassium 3.3 mmol/L (3.4-5.1); Sodium 139 mmol/L (137-145); Total Protein 6.7 g/dL (6.3-8.2)
[2025-03-03 08:00] VITALS: BP 157/84; PULSE 71; RESP 15; TEMP 36.1; O2SAT 98
[2025-03-03 08:18] VITALS: BP 151/84; PULSE 71
[2025-03-03] MEDS: LOSARTAN 50 MG TABLET PO (08:18)
[2025-03-03] MEDS: ASPIRIN EC 325 MG TABLET PO (08:18)
[2025-03-03] MEDS: ENOXAPARIN 40 MG/0.4 ML SYRINGE SUBCUT (08:19)
[2025-03-03] MEDS: hydroCHLOROthiazide 25 MG TABLET PO (08:19)
[2025-03-03] MEDS: BENZTROPINE 1 MG TABLET 2 MG PO (08:32)
[2025-03-03] MEDS: SODIUM CHLORIDE 0.9% 1,000 ML 100 ML IV (08:33)
--- NOTE | 2025-03-03 10:48 | PM.DS.IH.1 ---
History of Present Illness History of Present Illness Date Patient Seen: 03/03/25 Time Patient Seen: 09:45 Chief complaint: nauseas dry heaving sent by pcp Narrative: Pt is a 74yo man with schizophrenia, HTN, GERD, Schatzki's ring, and pituitary tumor who presented with nausea and vomiting. The pt reports that for approximately 2 days prior to presentation he had acute onset of nausea, recurrent vomiting, and diarrhea. He was not able to keep down any food, and minimal fluids. He states that he had very mild lower abdominal pain. The vomiting and diarrhea were both nonbloody. The pt denies any fevers, chills, chest pain, SOB. He denies any new foods or recent sick contacts. He was feeling well prior to 2 days ago. In the ER, the pt was given a 1L NS bolus and zofran, with significant improvement in his symptoms. Lab worked revealed significant hypokalemia, that was repleted with IV and then PO potassium. Abdominal CT revealed intrahepatic biliary ductal dilation and general colonic wall thickening suggestive of colitis. [facility] GI was consulted, and recommend RUQ abdominal u/s to eval for potential mass effect. U/S showed intrahepatic biliary ductal dilation without CBD dilation, without discrete etiology seen. Pt will need outpatient GI f/u. This morning, the pt reports that he is feeling well. He denies any abdominal pain. He has not had any nausea, vomiting, or diarrhea since admission. He was able to eat breakfast without any difficulty. Discharge Providers Provider Date of admission: 03/01/25 19:54 Discharge Date: 03/03/25 Primary care physician: Niall Sims MD Discharge provider: Amy Messina MD Summary Hospital Course Discharge Diagnosis: Vomiting and diarrhea Biliary duct dilatation Colitis Hypokalemia BAO HTN Schizophrenia GERD Hospital Course: The pt presented with nausea, vomiting, and diarrhea. Imaging showed biliary duct dilatation, however no mass or etiology found on ultrasound. Pt was not a candidate for MRCP due to possible aortic valve replacement seen on imaging. The pts symptoms improved significantly with IVF and Zofran. At the time of discharge he was tolerating all PO without difficulty. In the ED, the pt was noted to have significant hypokalemia. This was repleted with IV followed by PO potassium. His creatinine also tiffanie while in the hospital, despite being on IVF. Renal u/s was negative. The day of discharge, however, it had normalized. He will need outpatient f/u with GI regarding his biliary duct dilatation. He is stable for d/c home. Status at Discharge Cognitive/behavioral status at discharge: oriented Overall status at discharge: patient is back to baseline Exam Vital Signs (past 8 hours): - 03/03/25 06:29 03/03/25 08:00 03/03/25 08:18 Temperature 97.5 F L 97 F L Pulse Rate 69 71 71 Respiratory Rate 17 15 Blood Pressure 159/87 H 157/84 H 151/84 H Pulse Oximetry 99 98 Oxygen Flow Rate 0 0 Oxygen Delivery Method Room Air Oxygen Flow Rate 0 Narrative Exam Narrative: Gen: NAD, laying comfortably in bed, appears well HEENT: normocephalic, atraumatic, sclera clear Neck: no LAD CV: RRR, grade 3/6 systolic murmur Resp: clear to auscultation bilaterally, no wheezes or crackles Abd: soft, nontender, nondistended, normoactive bowel sounds, no HSM, no masses Ext: no edema Neuro: no gross deficits Objective Labs 03/02/25 09:00 03/03/25 06:35 Labs: Laboratory Results - last 24 hr 03/02/25 03/03/25 Unknown 06:35 Sodium 138 139 Potassium 3.2 L 3.3 L Chloride 107 110 H Carbon Dioxide 22 22 BUN 19 17 Creatinine 1.36 H 1.09 Estimated GFR 55 L > 60 BUN/Creatinine Ratio 14.0 15.6 Glucose 150 H 125 H Calcium 8.8 8.4 Total Bilirubin 1.0 AST 29 ALT 21 Alkaline Phosphatase 72 Total Protein 6.7 Albumin 3.5 Globulin 3.2 Albumin/Globulin Ratio 1.1 PFSH Medical History Schatzki's ring Hypogonadism in male 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 dante/confucianist: [employer] leisure activities: art (Pictures.) and other (TV, Yardwork.) Smoking Status: Former smoker Tobacco: How many years used: 0 quit status: quit date established (Never Started) second hand exposure: No alcohol intake: current substance use type: does not use Discharge Plan Discharge Plan Patient Disposition: Home Discharge orders & Medications Prescriptions: Continued rosuvastatin 10 mg tablet 10 mg PO ONCE PM losartan 50 mg tablet 50 mg PO DAILY aspirin 325 MG tablet,delayed release (DR/EC) 325 mg PO QDAY Qty: 0 triamterene-hydrochlorothiazid 37.5-25 mg tablet 1 tab PO QDAY Qty: 90 3RF omeprazole 20 mg capsule,delayed release(DR/EC) 20 mg PO BID Qty: 60 0RF Rx Instructions: PT WILL NEED TO BE SEEN BEFORE NEXT REFILL 10/04/22 benztropine 2 mg tablet 2 mg PO BID trifluoperazine 10 mg tablet 10 mg PO ONCE PM testosterone 20.25 mg/1.25 gram (1.62 %) gel in metered-dose pump 1 pump topical DAILY Discontinued hydrochlorothiazide 25 mg tablet 25 mg PO DAILY Follow up/Referrals: Niall Sims MD [Primary Care Provider, Family Practice] - 1 Week Diet/Activity/Treatments Diet: Diet as Tolerated and Regular Skin/Wound/Dressing Care Report to your healthcare provider any signs of infection, such as:: chills, fever and increased pain Visit Report/Discharge Packet Stand Alone Forms: Patient Portal/API, Stroke Signs & Symptoms Discharge Data Primary Care Provider: Niall Sims Attending Provider: Amy Messina Admit Date/Time: 03/01/25 19:54 [facility] PROFEE Charge Codes Discharge inpatient/observation: 13910
--- NOTE | 2025-03-03 10:49 | PC.NURSE ---
Addendum entered by Kasey Green R.N. 03/03/25 13:55: 1250: Pt & brother given D/C Home instructions ' SL D/C intact. Pt escorted by staff via W/C to waitng vehicle. D/C in stable status. Original Note: Pt A/O Denies any discomfort. IVF now SL Dr Messina here to see, orders for D/C received. Pt resting at this time Call light w/in reach, bed alarm on for pt safety.
--- NOTE | 2025-03-03 14:16 | CM.DPC ---
DCP Discharge Home Per MD, pt medically stabilized with IV fluids and electrolytes for discharge home today with family and outpt f/u and no identified barriers to discharge. Per RN, pt has been independent in room and on room air and no concerns noted and does not anticipate any further discharge planning needs and family notified and will transport pt home today. JUNIOR Rabago
== END 2025-03-03 13:10 | disposition home or self-care (01) ==
LOC: ED 19:55 → AC 19:55
PROVIDERS: Admitting Provider Family Medicine; Emergency Provider Physician Assistant; PCP Family Medicine; Referring Provider Physician Assistant; Visit Provider Family Medicine
DX: R11.2 Nausea with vomiting, unspecified (principal); R19.7 Diarrhea, unspecified; E87.6 Hypokalemia; E23.7 Disorder of pituitary gland, unspecified; K83.9 Disease of biliary tract, unspecified; N17.9 Acute kidney failure, unspecified; I10 Essential (primary) hypertension; K21.9 Gastro-esophageal reflux disease without esophagitis; K22.2 Esophageal obstruction; F20.9 Schizophrenia, unspecified; Z87.891 Personal history of nicotine dependence
CPT/HCPCS: 0241U; 36415; 70450; 71045; 74177; 76705; 76770; 80048; 80053; 81003; 81015; 82550; 83690; 83735; 84484; 85025; 93005; 96361; 96365; 96366; 96372; 96375; 96376; 99222; 99238; 99284; G0378; J1650; J2405; J2470; Q9967

== ENCOUNTER 2025-03-05 11:53 | Emergency (ER) | payer MEDICARE, SELFPAY ==
[2025-03-01 21:21] VITALS: BMI 31.6
[2025-03-05 12:38] VITALS: BP 156/77; PULSE 60; RESP 20; TEMP 36.4; O2SAT 98; BMI 29.2
== END 2025-03-05 15:29 | disposition left against medical advice (07) ==
PROVIDERS: Emergency Provider Emergency Medicine; PCP Family Medicine
CPT/HCPCS: 99281

== ENCOUNTER 2025-03-07 11:03 | Emergency (ER) | payer MEDICARE, SELFPAY ==
[2025-03-01 21:21] VITALS: BMI 31.6
[2025-03-07] VITALS (14 sets, daily range): BP systolic 155–174; BP diastolic 79–97; PULSE 59–70; RESP 15–272; TEMP 37–37.3; O2SAT 98–99; BMI 29.2
--- NOTE | 2025-03-07 11:20 | EKG_ITS ---
[address] [address] Test Date: 2025-03-07 Pat Name: Hay Day Department: [facility] Room: Gender: Male Landmen: : 1950 Requested By: Order Number: [id number] Reading MD: Real Harmon MD Measurements Intervals [place] Rate: 65 P: 8 IA: 170 QRS: 13 QRSD: 104 T: 182 QT: 442 QTc: 459 Interpretive Statements Normal sinus rhythm Left ventricular hypertrophy with repolarization abnormality ( R in aVL , Sokolow-Rivas , Markel product ) Electronically Signed On 03-07-2025 11:36:43 PDT by Real Harmon MD
--- NOTE | 2025-03-07 11:20 | DI.RAD.S_ITS ---
PROCEDURE: XR CHEST 1V INDICATIONS: Chest Pain TECHNIQUE: One view of the chest was acquired. COMPARISON: [facility], CR, XR CHEST 1V, 03/01/2025, 13:28. FINDINGS: New mild bilateral perihilar and lower lobe peribronchial thickening, left greater than right some of which may be related expiratory result; however, bronchitis, viral infection, asthma or other process should be considered. Mildly enlarged cardiopericardial silhouette unchanged. Mild bibasilar subsegmental atelectasis left greater than right some of which may be related expiratory result. Mild calcifications of the aortic arch unchanged. Degenerative changes of the thoracic spine and shoulders unchanged. No pneumothorax, no lobar consolidation. IMPRESSION: New mild peribronchial thickening. Mildly enlarged cardiopericardial silhouette. Follow-up suggested. If symptoms persist or worsen, or there is high clinical suspicion of thoracic abnormality, CT chest could be performed. Dictated by: David Gordillo M.D. on 03/07/2025 at 12:17 Approved by: David Gordillo M.D. on 03/07/2025 at 12:20
--- NOTE | 2025-03-07 11:31 | ED.RECABL ---
HPI - Recheck/Abnormal Lab/Rx General Chief Complaint: Recheck/Abnormal Lab/Rx Stated Complaint: Low potassium Time Seen by Provider: 03/07/25 11:25 Mode of arrival: Ambulatory History of Present Illness HPI narrative: 74-year-old gentleman history of schizophrenia hypertension GERD Schatzki's ring pituitary tumor presents with nausea vomiting nonbilious nonbloody since last week told his potassium was low came in to be evaluated today. Patient is a poor historian so most of the information was taken from [id number]. Patient is a says he has not had a bowel movement in over a week. Patient denies chest pain, shortness breath, fever, chills, recent antibiotic use, or any new changes in medicine. Other than what is stated 14 point review of systems negative. Related Data Home Medications ?Medication ?Instructions ?Recorded ?Confirmed aspirin 325 mg tablet,delayed 325 mg PO QDAY ##0 08/03/16 01/17/25 release benztropine 2 mg tablet 2 mg PO BID 06/27/23 03/01/25 testosterone 1 pump topical DAILY 06/27/23 01/17/25 trifluoperazine 10 mg tablet 10 mg PO ONCE PM 06/27/23 03/01/25 losartan 50 mg tablet 50 mg PO DAILY 01/17/25 03/01/25 rosuvastatin 10 mg tablet 10 mg PO ONCE PM 01/17/25 03/01/25 Previous Rx's ?Medication ?Instructions ?Recorded triamterene 37.5 1 tab PO QDAY #90 tabs 12/27/19 mg-hydrochlorothiazide 25 mg tablet omeprazole 20 mg capsule,delayed 20 mg PO BID #60 caps 10/04/22 release potassium chloride 20 mEq oral 20 meq PO BID #6 ea 03/07/25 packet potassium chloride 20 mEq oral 20 meq PO BID #6 ea 03/07/25 packet Allergies Allergy/AdvReac Type Severity Reaction Status Date / Time codeine (CODEINE) Allergy Unknown Verified 03/07/25 11:15 meperidine (MEPERIDINE) Allergy Unknown Verified 03/07/25 11:15 prochlorperazine Allergy Unknown Verified 03/07/25 11:15 (PROCHLORPERAZINE) Review of Systems Review of Systems ROS Unobtainable: All systems reviewed & are unremarkable except as noted in HPI and below Patient History Medical History Schatzki's ring Hypogonadism in male 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 dante/faith: Orthodox leisure activities: art (Pictures.) and other (TV, Yardwork.) Smoking Status: Never smoker Tobacco: How many years used: 0 quit status: quit date established (Never Started) second hand exposure: No alcohol intake: current substance use type: does not use Smoking Status: Never smoker alcohol intake frequency: holidays/special occasions only Exam Narrative Exam Narrative: GENERAL: [74] year old patient appears stated age. Well-developed patient, in mild distress. HEAD: Atraumatic. Normocephalic. EYES: Pupils equal round and reactive. Extraocular motions intact. No scleral icterus. No injection or drainage. NECK: Trachea midline. Non tender CARDIOVASCULAR: Regular rate and rhythm without murmurs, gallops, or rubs. RESPIRATORY: Clear to auscultation. Breath sounds equal bilaterally. No wheezes, rales, or rhonchi. GASTROINTESTINAL: Abdomen soft, non-tender, nondistended. EXTREMITIES: No edema or joint tenderness. BACK: Nontender without deformity or crepitance. No flank tenderness. NEURO: AOx3. SKIN: No rash or erythema of visible areas Initial Vital Signs Initial Vital Signs: Vital Signs Temperature 98.6 F 03/07/25 11:13 Pulse Rate 70 03/07/25 11:13 Respiratory Rate 20 03/07/25 11:13 Blood Pressure 162/92 H 03/07/25 11:13 Pulse Oximetry 98 03/07/25 11:13 Oxygen Delivery Method Room Air 03/07/25 11:13 Course Orders Ordered: ED Orders 03/07/25 11:20 XR chest 1V Stat EKG-12 Lead Stat 03/07/25 11:35 Complete Blood Count AUTO DIFF Stat Comprehensive Metabolic Panel Stat Lipase Stat Magnesium Stat NT-proBNP (BNP-Adult 18+) Stat Troponin & CK Cardiac Panel Stat 03/07/25 11:38 CT abdomen pelvis w con Stat 03/07/25 12:15 PTT Partial Thromboplastin Cole Stat Prothrombin Time INR Stat Potassium Chloride/Sodium Chloride (Ns With Kcl 20 Meq) 1,000 mls @ 100 mls/hr IV CONT MARTINE Last Admin: 03/07/25 11:47 Dose: Not Given Documented By: YFN POTASSIUM CHLORIDE IN WATER (Potassium Cl 10 Meq/100 Ml Daiana) 10 meq in 100 mls @ 100 mls/hr IV Q1H MARTINE Stop: 03/07/25 13:59 Last Admin: 03/07/25 13:57 Dose: 75 mls/hr Documented By: Infusion: 03/07/25 13:49 Dose: Infused Documented By: Infusion: 03/07/25 12:42 Dose: 75 mls/hr Documented By: Infusion: 03/07/25 12:35 Dose: 100 mls/hr Documented By: Infusion: 03/07/25 12:20 Dose: 0 mls/hr Documented By: Admin: 03/07/25 12:12 Dose: 100 mls/hr Documented By: YFN Discontinued Medications Aspirin (Aspirin 81 Mg Chew Tab) 324 mg PO NOW ONE Stop: 03/07/25 11:21 Last Admin: 03/07/25 11:26 Dose: Not Given Documented By: CHRIS Sodium Chloride (Normal Saline 0.9%) 1,000 mls @ 1,000 mls/hr IV BOLUS ONE Stop: 03/07/25 12:46 Last Infusion: 03/07/25 12:42 Dose: 110 mls/hr Documented By: Infusion: 03/07/25 12:34 Dose: 100 mls/hr Documented By: Infusion: 03/07/25 12:21 Dose: 0 mls/hr Documented By: Admin: 03/07/25 12:12 Dose: 1,000 mls/hr Documented By: YFN Ondansetron HCl (Ondansetron 4 Mg/2 Ml Inj) 4 mg IV NOW ONE Stop: 03/07/25 11:40 Last Admin: 03/07/25 12:12 Dose: 4 mg Documented By: YFN Vital Signs Vital signs: Vital Signs - 8 hr 03/07/25 11:13 03/07/25 11:43 03/07/25 11:43 Temperature 98.6 F Pulse Rate 70 64 Respiratory Rate 20 Blood Pressure 162/92 H 172/82 H Pulse Oximetry 98 98 Oxygen Delivery Method Room Air 03/07/25 12:00 03/07/25 12:00 03/07/25 12:29 Temperature Pulse Rate 63 61 Respiratory Rate 20 Blood Pressure 155/79 H Pulse Oximetry 98 99 Oxygen Delivery Method 03/07/25 12:29 03/07/25 12:30 03/07/25 12:30 Temperature Pulse Rate 61 Respiratory Rate 22 Blood Pressure 168/97 H 169/83 H Pulse Oximetry 99 Oxygen Delivery Method MDM - Recheck/Abnormal Lab/Rx Lab Data 03/07/25 11:35 03/07/25 11:35 Labs: Lab Results 03/07/25 03/07/25 Range/Units 11:35 12:15 WBC 6.2 (4.5-11.0) X10^3/uL RBC 4.73 (4.5-5.9) X10^6/uL Hgb 14.7 (13.5-17.5) g/dL Hct 41.0 (41-53) % MCV 86.7 (80-100) fL MCH 31.2 (26-34) PG MCHC 36.0 (30-36) % RDW 14.2 (11.6-14.8) % Plt Count 212 (150-400) X10^3/uL Neut % (Auto) 64.6 (50-75) % Lymph % (Auto) 24.8 L (25-40) % [place] % (Auto) 9.4 (3-14) % Eos % (Auto) 0.6 L (2-4) % Baso % (Auto) 0.6 (0-2) % Neut # (Auto) 4000 (8404-0442) /uL Lymph # (Auto) 1500 (1332-6738) /uL [place] # (Auto) 600 (0-900) /uL Eos # (Auto) 0 (0-450) /uL Baso # (Auto) 0 (0-100) /uL PT 12.9 H (9.4-12.5) SECONDS INR 1.1 (0.9-1.3) APTT 38 H (25.1-36.5) SECONDS Sodium 138 (137-145) mmol/L Potassium 3.1 L (3.4-5.1) mmol/L Chloride 105 (98-107) mmol/L Carbon Dioxide 21 L (22-32) mmol/L BUN 22 H (9-20) mg/dL Creatinine 1.20 (0.66-1.25) mg/dL Estimated GFR > 60 (>60) mL/min BUN/Creatinine Ratio 18.3 (6-22) Glucose 150 H (70-99) mg/dL Calcium 9.5 (8.4-10.2) mg/dL Magnesium 2.0 (1.6-2.3) mg/dL Total Bilirubin 1.9 H (0.2-1.3) mg/dL AST 32 (17-59) IU/L ALT 33 (<50) IU/L Alkaline Phosphatase 94 (38-126) U/L Total Creatine Kinase 144 (55-170) U/L Troponin I 0.023 (0.01-0.034) ng/mL NT-Pro-B Natriuret Pep 1590 H (<125) pg/mL Total Protein 8.3 H (6.3-8.2) g/dL Albumin 4.6 (3.5-5.0) g/dL Globulin 3.7 (1.7-4.1) g/dL Albumin/Globulin Ratio 1.2 (1.0-2.8) Lipase 109 (23-300) U/L Imaging Data CT scan - abdomen/pelvis: Radiologist's Impression: [address] [address] [address] Scan Report Signed Patient: Hay Day MR#: [id number] : 1950 Acct:[id number] Age/Sex: 74 / M Date of Service: 03/07/25 Loc: ED Accession Number: [id number] Procedure: CT abdomen pelvis w con Ordering Provider: Real Nur D.O. PROCEDURE: CT ABDOMEN PELVIS W CON INDICATIONS: abd pain / n/v TECHNIQUE: After the administration of intravenous contrast, axial sections acquired from the lung bases to the pubic symphysis. Coronal and sagittal reformats were performed. For radiation dose reduction, the following was used: automated exposure control, adjustment of mA and/or kV according to patient size. COMPARISON: [facility], CT, CT ABDOMEN PELVIS W CON, 03/01/2025, 14:13. FINDINGS: Image quality: Diagnostic. Lower Chest: No significant findings. ABDOMEN: Liver: No solid mass. Steatosis. Hepatic cysts. Gallbladder: Removed. Biliary ducts: Unchanged appearance of biliary dilation. Stable since 03/01/2025. Pancreas: No ductal dilation. Spleen: Size is within normal limits. Adrenal Glands: No adrenal nodules. Kidneys and Ureters: No hydronephrosis. Simple right hepatic cyst. Stomach and Bowel: Normal colonic caliber, without significant wall thickening. Peritoneum: No abnormal intraperitoneal fluid. No free air. Ventral Wall: No significant ventral hernia. Abdominal Nodes: No retroperitoneal or mesenteric adenopathy by size criteria. Vessels: Aorta and inferior vena cava are normal in size. PELVIS: Pelvic Organs: Unremarkable. Bladder: No bladder wall thickening, accounting for underdistention. Pelvic Nodes: No enlarged lymph nodes. Miscellaneous: Fat containing inguinal hernias are seen. Bones: No aggressive osseous abnormality. IMPRESSION: Stable interval exam demonstrating no acute intra-abdominal or pelvic process. Unchanged appearance of biliary dilation. As previously identified, MRCP may be obtained. ECG Data Interpretation: NSR HR 65 LVH CO 170 QRS [address]-t wave change Unchanged from 03/01/25 MDM Narrative Medical decision making narrative: All lab work, vital signs, nurse triage note, medication list, previous ER visits, and all imaging modality reviewed. Patient given K rider here potassium 3.1 sodium 138 BUN 22 creatinine 1.2 magnesium 2.0 troponin normal at 0.[address] abdomen and pelvis shows stable interval exam demonstrating no acute intra-abdominal or pelvic process unchanged appearance of biliary dilatation. T bili of 1.9. Ultrasound done 6 days ago showed intrahepatic biliary ductal dilatation seen without significant CBD dilatation no discrete etiology identified on abdominal ultrasound. Increased hepatic echogenicity nonspecific most, steatosis Discharge Plan Departure Patient Disposition: Home Clinical Impression: Hypokalemia, Nausea & vomiting Instructions: DI for Hypokalemia Activity Restrictions/Additional Instructions: Return with new or worsening symptoms. Take potassium pill as directed. Follow up PCP next week for recheck of potassium level. Prescriptions: New potassium chloride 20 mEq packet 20 meq PO BID Qty: 6 0RF potassium chloride 20 mEq packet 20 meq PO BID Qty: 6 0RF No Action rosuvastatin 10 mg tablet 10 mg PO ONCE PM losartan 50 mg tablet 50 mg PO DAILY aspirin 325 MG tablet,delayed release (DR/EC) 325 mg PO QDAY Qty: 0 triamterene-hydrochlorothiazid 37.5-25 mg tablet 1 tab PO QDAY Qty: 90 3RF omeprazole 20 mg capsule,delayed release(DR/EC) 20 mg PO BID Qty: 60 0RF Rx Instructions: PT WILL NEED TO BE SEEN BEFORE NEXT REFILL 10/04/22 benztropine 2 mg tablet 2 mg PO BID trifluoperazine 10 mg tablet 10 mg PO ONCE PM testosterone 20.25 mg/1.25 gram (1.62 %) gel in metered-dose pump 1 pump topical DAILY Referrals: Niall Sims MD [Primary Care Provider, Family Practice] Stand Alone Forms: Patient Portal/API
--- NOTE | 2025-03-07 11:38 | DI.CT.S_ITS ---
PROCEDURE: CT ABDOMEN PELVIS W CON INDICATIONS: abd pain / n/v TECHNIQUE: After the administration of intravenous contrast, axial sections acquired from the lung bases to the pubic symphysis. Coronal and sagittal reformats were performed. For radiation dose reduction, the following was used: automated exposure control, adjustment of mA and/or kV according to patient size. COMPARISON: [facility], CT, CT ABDOMEN PELVIS W CON, 03/01/2025, 14:13. FINDINGS: Image quality: Diagnostic. Lower Chest: No significant findings. ABDOMEN: Liver: No solid mass. Steatosis. Hepatic cysts. Gallbladder: Removed. Biliary ducts: Unchanged appearance of biliary dilation. Stable since 03/01/2025. Pancreas: No ductal dilation. Spleen: Size is within normal limits. Adrenal Glands: No adrenal nodules. Kidneys and Ureters: No hydronephrosis. Simple right hepatic cyst. Stomach and Bowel: Normal colonic caliber, without significant wall thickening. Peritoneum: No abnormal intraperitoneal fluid. No free air. Ventral Wall: No significant ventral hernia. Abdominal Nodes: No retroperitoneal or mesenteric adenopathy by size criteria. Vessels: Aorta and inferior vena cava are normal in size. PELVIS: Pelvic Organs: Unremarkable. Bladder: No bladder wall thickening, accounting for underdistention. Pelvic Nodes: No enlarged lymph nodes. Miscellaneous: Fat containing inguinal hernias are seen. Bones: No aggressive osseous abnormality. IMPRESSION: Stable interval exam demonstrating no acute intra-abdominal or pelvic process. Unchanged appearance of biliary dilation. As previously identified, MRCP may be obtained. Dictated by: Alexus Stratton M.D. on 03/07/2025 at 13:14 Approved by: Alexus Stratton M.D. on 03/07/2025 at 13:17
[2025-03-07 11:46] LABS: Add Manual Diff / Slide Review NO; Basophils Absolute Auto 0 /uL (0-100); Basophils Percent Auto 0.6 % (0-2); Eosinophils Absolute Auto 0 /uL (0-450); Eosinophils Percent Auto 0.6 % (2-4); Hemoglobin 14.7 g/dL (13.5-17.5); Lymphocytes Absolute Auto 1500 /uL (1100-4500); Lymphocytes Percent Auto 24.8 % (25-40); Mean Corpuscular Hemoglobin 31.2 PG (26-34); Mean Corpuscular Volume 86.7 fL (80-100); Monocytes Absolute Auto 600 /uL (0-900); Monocytes Percent Auto 9.4 % (3-14); Neutrophils Absolute Auto 4000 /uL (1500-7000); Neutrophils Percent Auto 64.6 % (50-75); Platelet Count 212 X10^3/uL (150-400); Red Blood Cell Count 4.73 X10^6/uL (4.5-5.9); Red Cell Distribution Width 14.2 % (11.6-14.8); White Blood Cell Count 6.2 X10^3/uL (4.5-11.0)
--- NOTE | 2025-03-07 12:02 | PC.NURSE ---
dry heaves. past history of potassium runs out. no SBO.. history of gallbladder removal (2002) no diabetes. constipation since last . not much appetite.
[2025-03-07 12:05] LABS: Alanine Aminotransferase 33 IU/L (<50); Albumin 4.6 g/dL (3.5-5.0); Albumin Globulin Ratio 1.2 (1.0-2.8); Alkaline Phosphatase 94 U/L (38-126); Aspartate Aminotransferase 32 IU/L (17-59); BUN Creatinine Ratio 18.3 (6-22); Bilirubin Total 1.9 mg/dL (0.2-1.3); Blood Urea Nitrogen 22 mg/dL (9-20); Calcium 9.5 mg/dL (8.4-10.2); Carbon Dioxide 21 mmol/L (22-32); Chloride 105 mmol/L (98-107); Creatine Kinase 144 U/L (55-170); Estimated Glomerular Filt Rate > 60 mL/min (>60); Globulin 3.7 g/dL (1.7-4.1); Glucose 150 mg/dL (70-99); HEMOLYSIS < 15 (0-50); Lipase 109 U/L (23-300); Potassium 3.1 mmol/L (3.4-5.1); Sodium 138 mmol/L (137-145); Total Protein 8.3 g/dL (6.3-8.2)
[2025-03-07] MEDS: ONDANSETRON 4 MG/2 ML INJ IV (12:12)
[2025-03-07] MEDS: SODIUM CHLORIDE 0.9% 1,000 ML 1000 ML IV (12:12)
[2025-03-07] MEDS: POTASSIUM CHLORIDE IN WATER 10 MEQ/100 ML PIGGYBACK 100 MEQ IV (12:12)
[2025-03-07 12:17] LABS: NT-proBNP (BNP-Adult 18+) 1590 pg/mL (<125); Troponin I 0.023 ng/mL (0.01-0.034)
[2025-03-07 13:00] LABS: INR 1.1 (0.9-1.3); PTT Partial Thromboplastin Tim 38 SECONDS (25.1-36.5); Prothrombin Time 12.9 SECONDS (9.4-12.5)
[2025-03-07] MEDS: POTASSIUM CHLORIDE IN WATER 10 MEQ/100 ML PIGGYBACK 75 MEQ IV (13:57)
== END 2025-03-07 15:21 | disposition home or self-care (01) ==
PROVIDERS: Emergency Provider Family Medicine; PCP Family Medicine
DX: E87.6 Hypokalemia (principal); R11.2 Nausea with vomiting, unspecified
CPT/HCPCS: 36415; 71045; 74177; 80053; 82550; 83690; 83735; 83880; 84484; 85025; 85610; 85730; 93005; 93010; 96365; 96366; 96375; 99284; J2405; Q9967

== ENCOUNTER → 2025-03-19 11:13 | Outpatient (CLI) | payer MEDICARE, SELFPAY ==
[2025-03-01 21:21] VITALS: BMI 31.6
--- NOTE | 2025-03-19 11:14 | DI.MRI.S_ITS ---
PROCEDURE: MR ABDOMEN WO CON INDICATIONS: intrahepatic bile duct dilation TECHNIQUE: Coronal HASTE through the abdomen, axial 2-D FLASH in- and [id number], and breath-hold T2 FSE with fat saturation through the biliary system and pancreas. Oblique coronal and axial thin-slice HASTE, radial thick-slab HASTE centered on the extrahepatic bile ducts. COMPARISON: [facility], CT, CT ABDOMEN PELVIS W CON, 03/07/2025, 12:21. [facility], CT, CT ABDOMEN PELVIS W CON, 03/01/2025, 14:13. FINDINGS: Image quality: Diagnostic. Gallbladder: Absent. Biliary ducts: Mild intrahepatic biliary ductal dilatation. CBD measures 0.8 cm. No choledocholithiasis. Pancreas: No ductal dilation. A few pancreatic cysts in the body and tail. The largest measuring 0.5 cm at the body, (01/05). No restricted diffusion. OTHER: Lung bases: Gynecomastia. Liver: T2 hyperintense cysts. Spleen: Size is within normal limits. Adrenal Glands: No adrenal nodules. Kidneys and Ureters: No hydronephrosis. No solid mass. No complex renal cystic lesion which requires follow up. Stomach and Bowel: No dilated loops of bowel. Peritoneum: No abnormal intraperitoneal fluid. No free air. Ventral Wall: No hernia. Abdominal Nodes: No retroperitoneal or mesenteric adenopathy by size criteria. Vessels: Aorta and inferior vena cava are normal in size. Bones: No aggressive osseous abnormality. IMPRESSION: 1. Similar intrahepatic biliary ductal dilatation. The CBD is also mildly prominent. Findings could be due to reserve phenomenon in this post cholecystectomy patient. No choledocholithiasis demonstrated. 2. No pancreatic ductal dilatation. A few pancreatic cysts measuring 0.5 cm or less. These could represent tiny IPMN. Dictated by: Sukhdev Saxena M.D. on 03/19/2025 at 19:47 Approved by: Sukhdev Saxena M.D. on 03/19/2025 at 20:04
== END ==
LOC: MRI 11:14
PROVIDERS: PCP Family Medicine; Referring Provider Family Medicine; Visit Provider Family Medicine
DX: K83.8 Other specified diseases of biliary tract (principal); K86.2 Cyst of pancreas; K76.89 Other specified diseases of liver; N62 Hypertrophy of breast; Z90.49 Acquired absence of other specified parts of digestive tract
CPT/HCPCS: 74181

== ENCOUNTER → 2025-04-10 11:39 | Outpatient (CLI) | payer MEDICARE, SELFPAY ==
[2025-03-20 11:44] VITALS: BMI 31.6
--- NOTE | 2025-04-10 11:41 | DI.RAD.S_ITS ---
PROCEDURE: XR LUMBAR SPINE 2-3V INDICATIONS: Low back pain, unspecified TECHNIQUE: 3 views of the lumbar spine were acquired. COMPARISON: [facility], CR, XR LUMBAR SPINE 2-3V, 06/20/2020, 11:40. FINDINGS: Lumbar spine curvature and alignment: Normal. Bones: There are no osseous abnormalities. Disc spaces: Mild degenerative disc disease T11-T12 through L1-2 L4-5 and L5- S1. There is also moderate L3-4 through L5-S1 degenerative facet disease Soft tissues: No soft tissue swelling, calcification or mass. IMPRESSION: Degeneration-progressing from 2019 Dictated by: Real Lugo M.D. on 04/11/2025 at 12:33 Approved by: Real Lugo M.D. on 04/11/2025 at 12:34
== END ==
LOC: RAD 11:40
PROVIDERS: PCP Family Medicine; Referring Provider Family Medicine; Visit Provider Family Medicine
DX: M51.34 Other intervertebral disc degeneration, thoracic region (principal); M51.360 Other intervertebral disc degeneration, lumbar region with discogenic back pain only; M51.370 Other intervertebral disc degeneration, lumbosacral region with discogenic back pain only; M47.816 Spondylosis without myelopathy or radiculopathy, lumbar region; M47.817 Spondylosis without myelopathy or radiculopathy, lumbosacral region; G89.29 Other chronic pain
CPT/HCPCS: 72100